=== PATIENT | male | born 1930 | race Two or more races ===

== ENCOUNTER 2018-09-18 05:36 | Inpatient (IN) | payer MEDICARE, OTHER ==
[~2018-09-18] VITALS: Ht 177.8 cm; Wt 75.3 kg
[2018-09-18] VITALS (53 sets, daily range): BP systolic 62–171; BP diastolic 14–102
--- NOTE | 2018-09-18 05:50 | NUR ---
MARLON FROM [facility]. TO ER BED 9. PT AWAKE AND AGITATED. TACHYPNEIC. BROUGHT IN FOR LOW BP - 46 ON SCENE, GIVEN D10 250ML VIA IV. BS RECHECKED WITH RESULT 185. PT NOTED WITH O2 SAT OF [address] ON O2 VIA MASK @ 8LPM SATTING @ 90%. PT ALSO REPORTED AT 90/45. PT NOTED RONCHI UPON ASSESSMENT. PT PLACED ON SOFT WRIST RESTRAINT D/T TRYING TO PULL HIS F/C. MD AT BEDSIDE
--- NOTE | 2018-09-18 05:52 | NUR ---
TECH AT BEDSIDE FOR EKG
[2018-09-18 05:56] LABS: BASOPHILS % (AUTO) 0.3 % (0.0-2.0); EOSINOPHILS % (AUTO) 0.3 % (0.0-6.0); HEMATOCRIT 30 % (39-51); HEMOGLOBIN 9.6 g/dL (13.5-17.5); LYMPHOCYTES # (AUTO) 0.2 /CMM (0.8-4.8); LYMPHOCYTES % (AUTO) 3.8 % (20.0-44.0); MEAN CORPUSCULAR HGB CONC 32 g/dl (31.0-36.0); MEAN CORPUSCULAR VOLUME 94 fL (80-96); MONOCYTES # (AUTO) 0.1 /CMM (0.1-1.30); MONOCYTES % (AUTO) 1.4 % (2.0-12.0); NEUTROPHILS # (AUTO) 5.2 /CMM (1.8-8.9); NEUTROPHILS % (AUTO) 94.2 % (43.0-81.0); PLATELET COUNT (AUTO) 207 /CMM (150-450); RED BLOOD CELL COUNT(AUTO) 3.16 MIL/uL (4.5-6.0); WHITE BLOOD COUNT (AUTO) 5.6 K/uL (4.3-11.0)
[2018-09-18] MEDS ORDERED: IV NS 0.9% 500 ML BAG IV ONE (06:00)
[2018-09-18 06:13] LABS: ALANINE AMINOTRANSFERASE 48 U/L (12-78); ALBUMIN 2.1 g/dL (3.4-5.0); ALKALINE PHOSPHATASE 210 U/L (46-116); ASPARTATE AMINOTRANSFERASE 45 U/L (15-37); BILIRUBIN,DIRECT 0.1 mg/dL (0.0-0.2); BILIRUBIN,TOTAL 0.1 mg/dL (0.2-1.0); CARBON DIOXIDE 23 mmol/L (21-32); CHLORIDE 110 mmol/L (98-107); GLUCOSE 186 mg/dL (74-106); SODIUM SERUM 140 mmol/L (136-145); TOTAL PROTEIN, SERUM 5.8 g/dL (6.4-8.2); UREA NITROGEN, BLOOD 65 mg/dL (7-18)
[2018-09-18 06:19] LABS: POTASSIUM 6.3 mmol/L (3.5-5.1)
[2018-09-18] MEDS ORDERED: CALCIUM CHLORIDE 1,000 MG/10 ML DISP.SYRIN ONE (06:28)
[2018-09-18] MEDS ORDERED: SODIUM BICARBONATE SYR 50 MEQ/50 ML DISP.SYRIN ONE (06:28)
[2018-09-18] MEDS ORDERED: ALBUTEROL FS 2.5 MG/3 ML VIAL.NEB NEB ONE (06:30)
[2018-09-18] MEDS ORDERED: SODIUM BICARBONATE SYR 50 MEQ/50 ML DISP.SYRIN IV ONE (06:30)
[2018-09-18] MEDS ORDERED: CALCIUM CHLORIDE 1,000 MG/10 ML DISP.SYRIN IV ONE (06:30)
--- NOTE | 2018-09-18 06:35 | NUR ---
NO URINE COLLECTED FROM F/C. MADE AWARE. ORDER RECEIVED FOR HYDRATION
[2018-09-18 06:37] LABS: ABG BASE EXCESS -9.9 mmol/L; ABG OXYGEN SATURATION 93.4 % (92.0-98.5); ABG PCO2 39.9 mmHg (35.0-45.0); ABG PH 7.241 (7.350-7.450); ABG PO2 77.6 mmHg (75.0-100.0); AaDO2 306.3 mmHg; MetHb 0.2 % (0.0-1.5); O2Hb 92.3 % (94.0-97.0); SITE, ABG Right Radial; VENT MODE, BG SIMPLE MASK
[2018-09-18] MEDS ORDERED: LEVOFLOXACIN 750 MG /D5W 150ML 150 ML IV ONE (06:45)
--- NOTE | 2018-09-18 06:45 | NUR ---
PT TO CT ON PILAR WITH RN AT BEDSIDE W/ ACLS
[2018-09-18] MEDS ORDERED: ALBUTEROL FS 2.5 MG/3 ML VIAL.NEB ONE (06:55)
[2018-09-18] MEDS ORDERED: LEVOFLOXACIN 750 MG /D5W 150ML PIGGYBACK IV ONE (07:00)
[2018-09-18] MEDS ORDERED: IV NS 0.9% 1,000 ML BAG IV ONE (07:00)
[2018-09-18 07:07] LABS: THYROID STIMULATING HORMONE 4.837 uIU/mL (0.358-3.74)
--- NOTE | 2018-09-18 07:48 | NUR ---
CALLED [facility] ITS ANDONIAN
--- NOTE | 2018-09-18 07:48 | NUR ---
AYO GERMAN (DAUGHTER) [phone]
--- NOTE | 2018-09-18 07:51 | NUR ---
CONTACTED HOUSE SUP FOR ICU BED
--- NOTE | 2018-09-18 08:11 | NUR ---
ICU BED 258. [facility] ON-CALL PAGED.
[2018-09-18 08:45] LABS: APPEARANCE,URINE Slightly Cloudy (CLEAR); BILIRUBIN,URINE Negative (NEGATIVE); BLOOD, URINE Moderate Ery/uL (NEGATIVE); COLOR,URINE Yellow (YELLOW); KETONES,URINE Trace (NEGATIVE); LEUKOCYTE ESTERASE ,URINE Moderate (NEGATIVE); NITRITE, URINE Negative (NEGATIVE); PROTEIN,URINE 100 mg/dl (NEGATIVE); UGLUCOSE Negative (NEGATIVE); UROBILINOGEN,URINE 0.2 EU/dL (0.2)
[2018-09-18 09:00] LABS: BACTERIA,URINE 2+ /HPF (None Seen); SQUAMOUS EPITHELIAL CELL,UR Few /HPF (None Seen)
--- NOTE | 2018-09-18 09:00 | NUR ---
WARP TYING MACHINE TENDER ADMITTING NOTES: Rec'd report from Vito JAMES. Pt for transfer to ICU d/t low HR & AMS. Pt transferred via gurney accompanied by RN & DRILL SERGEANT. Pt is awake & restless. Coarse breath sounds upon auscultation, 94% on NRB 15lpm. SB 39 bpm on telemonitor - E cart placed at bedside. Hypothermic 86.4 - placed warm blanket & inserted rectal probe for temp monitoring. IV line access on R AC G18 SL & L AC G20 SL, flushing well, patent & intact w/ no s/sx of infection/infiltration noted. FC draining to BSB but w/ low yellowish UOP. Wound photos taken & placed in the chart, wound consult ordered for presence of scattered lesion on extremities. Safety precaution kept in place at all times w/ be din lowest & locked pos. Call light placed w/in reach. Will cont to monitor & attend pt needs.
[2018-09-18] MEDS ORDERED: AMLO5TAB4 PO (09:05)
[2018-09-18] MEDS ORDERED: INSU100V30 IJ (09:05)
[2018-09-18] MEDS ORDERED: MEMA10TA PO (09:05)
[2018-09-18] MEDS ORDERED: DOCU-141 PO (09:05)
[2018-09-18] MEDS ORDERED: DONE10TA11 PO (09:05)
[2018-09-18] MEDS ORDERED: CLON0.1T PO (09:05)
[2018-09-18] MEDS ORDERED: CARV6.25 PO (09:05)
[2018-09-18] MEDS ORDERED: PANT40TA2 PO (09:05)
[2018-09-18] MEDS ORDERED: ASPI-605 PO (09:05)
[2018-09-18] MEDS ORDERED: MULT-447 PO (09:05)
[2018-09-18] MEDS ORDERED: AMIO200T4 PO (09:05)
[2018-09-18] MEDS ORDERED: LACT1CAP61 PO (09:05)
[2018-09-18] MEDS ORDERED: ACET-868 PO (09:05)
[2018-09-18] MEDS ORDERED: ASCO500T8 PO (09:05)
[2018-09-18] MEDS ORDERED: QUET25TA PO (09:07)
[2018-09-18] MEDS ORDERED: TRAZ-182 PO (09:07)
[2018-09-18] MEDS ORDERED: SERT50TA PO (09:07)
--- NOTE | 2018-09-18 09:09 | NUR ---
PATIENT TRANSFERRED TO ROOM 258 VIA ACLS PROTOCOL. PATIENT NAD, VSS. ON 15LPM VIA NRB WITH SPO2 OF 96%.
--- NOTE | 2018-09-18 09:30 | NUR ---
Pt restless & agitated, pulling clothes. Dr. Morocho made aware may apply bilateral soft wrist restraints. MD to put admission orders.
--- NOTE | 2018-09-18 09:45 | NUR ---
Called Dr. Morocho re: SBP 70's, HR 39. Per may start NS 100 cc/hr. Addendum: 09/18/18 at 1008 by ROSALES WHITTINGTON RN Addendum: Pt's HR & BP persistently on low side HR 39, BP 80-70's. Spoke w/ Dr. Morocho w/ orders to start Dopamine double concentration & may insert PICC line. MD to consult Dr. Gagnon for cardiology consult.
[2018-09-18] MEDS ORDERED: DOPAMINE 800MG/D5W 250ML RTU PIGGYBACK IV PRN (10:00)
[2018-09-18] MEDS ORDERED: IV NS 0.9% 1,000 ML IV PRN (10:00)
[2018-09-18] MEDS ORDERED: IV NS 0.9% 1,000 ML BAG IV PRN (10:00)
[2018-09-18] MEDS: DOPamine 800 MG in IV D5W 250 ML IV PRN ×2 (10:21→16:11)
[2018-09-18] MEDS ORDERED: ACETAMINOPHEN 325 MG TABLET PO PRN (10:30)
[2018-09-18] MEDS ORDERED: ONDANSETRON HCL/PF 4 MG/2 ML VIAL IVP PRN (10:30)
[2018-09-18] MEDS ORDERED: HYDROCODONE/APAP 5/325MG 1 EACH TABLET PO PRN (10:30)
[2018-09-18] MEDS ORDERED: MAG HYDROX/AL HYDROX/SIMETH 30 ML UDC PO PRN (10:30)
[2018-09-18] MEDS ORDERED: ZOLPIDEM TARTRATE 5 MG TABLET PO PRN (10:30)
[2018-09-18] MEDS ORDERED: MAGNESIUM HYDROXIDE 30 ML UDC PO PRN (10:30)
--- NOTE | 2018-09-18 10:45 | NUR ---
Pt seen & examined by Dr. Calderón. was able to talk to pt's dtr over the phone re: HD catheter placement & initiation of HD tx. Consent signed by as well. Per Dr. Romie GREEN to insert HD cath.
--- NOTE | 2018-09-18 11:15 | NUR ---
Pt seen & examined by Dr. Gagnon, updated about pt status. Addendum: 09/18/18 at 1144 by ROSALES WHITTINGTON RN Per Dr. Gagnon, josué pt c/o ER.
--- NOTE | 2018-09-18 11:20 | NUR ---
Pt desating despite of NRB 100%. Dr. Church made aware w/ orders may place pt on BIPAP. RT made aware.
--- NOTE | 2018-09-18 11:20 | NUR ---
PT. PACED INTO BIPAP DUE TO SPO2 OF 87% ON NON REBREATHER AMD INCREASED WOB. IPAP 15, EPAP 5 FREQ 12, FIO2 100% ORDER. BREATH SOUNDS BILATERAL FINE RALES/ CRACKLES. ANGELI GALLEGO @ BEDSIDE. Addendum: 09/18/18 at 1225 by JIMMIE ROMO RT Amended: Links added.
[2018-09-18] MEDS ORDERED: VANCOMYCIN 1 GM in IV D5W 250ml IV ONE (11:30)
[2018-09-18] MEDS ORDERED: VANCOMYCIN 500 MG in IV D5W 100 ML IV PRN (11:30)
[2018-09-18] MEDS ORDERED: FEE PK DOSING 1 MIN EA MC ONE (11:31)
[2018-09-18] MEDS: NOREPINEPHRINE 16 MG in IV D5W 500 ML IV PRN (11:36)
--- NOTE | 2018-09-18 11:50 | NUR ---
Pt seen & examined by Dr. Ames, updated about pt status.
--- NOTE | 2018-09-18 11:55 | NUR ---
ER Dr came for intubation, however, per Dr. Paul assessment, no indication for intubation at this time. MD was able to talk to Dr. Gagnon over the phone. Dr. Paul ordered for ABG. RT aware.
[2018-09-18] MEDS ORDERED: SODIUM POLYSTYRENE SULF. PWD 15 GM UDC RC ONE (12:00)
[2018-09-18] MEDS: ZOSYN IVPB 2.25 G in IV D5W 50ml IV SCH ×3 (13:07→23:27)
[2018-09-18] MEDS: HYDROCORTISONE SOD SUCCINATE 100 MG/2 ML VIAL IV SCH ×2 (13:08→17:26)
[2018-09-18 13:59] LABS: ABG BASE EXCESS -9.5 mmol/L; ABG OXYGEN SATURATION 96.6 % (92.0-98.5); ABG PCO2 43.9 mmHg (35.0-45.0); ABG PH 7.223 (7.350-7.450); ABG PO2 132.5 mmHg (75.0-100.0); AaDO2 536.6 mmHg; COHb 0.2 % (0.5-1.5); MetHb 0.3 % (0.0-1.5); O2Hb 96.1 % (94.0-97.0); SITE, ABG Right Radial; VENT MODE, BG ST R12 15/5
[2018-09-18] MEDS: BLOOD SUGAR DIAGNOSTIC 1 EACH STRIP IN SCH ×2 (17:33→23:26)
[2018-09-18] MEDS: INSULIN REGULAR, HUMAN 100 UNIT/ML 3 ML VIAL SQ PRN (17:33)
[2018-09-18 17:57] LABS: ABG BASE EXCESS -4.9 mmol/L; ABG OXYGEN SATURATION 97.9 % (92.0-98.5); ABG PCO2 35.8 mmHg (35.0-45.0); ABG PH 7.363 (7.350-7.450); ABG PO2 335.6 mmHg (75.0-100.0); AaDO2 341.6 mmHg; COHb 0.1 % (0.5-1.5); MetHb 0.3 % (0.0-1.5); O2Hb 97.5 % (94.0-97.0); SITE, ABG Right Radial
--- NOTE | 2018-09-18 18:09 | NUR ---
PLACED INTO SIMPLE MASK @ 8 LPM O2 FLOW DUE TO COMBATIVE ON BIPAP. SPO2 100% ON 8 LPM O2 FLOW VIA SIMPLE MASK. BIPAP ON STDBY @ BEDSIDE. RELATIVE OF THE PATIENT AND RN AWARE ON CHANGES. Addendum: 09/18/18 at 1811 by JIMMIE ROMO RT Amended: Links added.
--- NOTE | 2018-09-18 18:52 | NUR ---
CEMENTER MACHINE CLOSING NOTES: Pt on bed, still showing restlessness. Tolerating simple mask at 8lpm, no SOB, sating 98% - s/p HD procedure w/ 2 L output. SR now on telemonitor. IV line access kept patent & intact w/ no s/sx of infection/infiltration noted - REMY PICC line w/ NS x 30cc/hr & Levo x 4 mcg both infusing well. Pt off dopamine drip. FC draining to BSB w/ minimal UOP w/in shift. R femoral HD cath kept patent & intact. Pt off restraints now. Safety precaution kept in place at all times w/ bed in lowest & locked pos. Call light placed w/in reach. Will endorse to PM RN for ERICK.
[2018-09-19] VITALS (56 sets, daily range): BP systolic 76–148; BP diastolic 18–87
[2018-09-19 04:51] LABS: CALCIUM, SERUM 8.5 mg/dL (8.5-10.1); CARBON DIOXIDE 20 mmol/L (21-32); CHLORIDE 107 mmol/L (98-107); GLUCOSE 74 mg/dL (74-106); MAGNESIUM 1.7 mg/dL (1.8-2.4); PHOSPHORUS 7.2 mg/dL (2.5-4.9); SODIUM SERUM 140 mmol/L (136-145); UREA NITROGEN, BLOOD 49 mg/dL (7-18)
[2018-09-19 04:53] LABS: BASOPHILS % (AUTO) 0.1 % (0.0-2.0); HEMATOCRIT 30 % (39-51); HEMOGLOBIN 9.5 g/dL (13.5-17.5); LYMPHOCYTES # (AUTO) 0.3 /CMM (0.8-4.8); LYMPHOCYTES % (AUTO) 1.5 % (20.0-44.0); MEAN CORPUSCULAR HGB CONC 32 g/dl (31.0-36.0); MEAN CORPUSCULAR VOLUME 93 fL (80-96); MONOCYTES # (AUTO) 0.4 /CMM (0.1-1.30); MONOCYTES % (AUTO) 2.1 % (2.0-12.0); NEUTROPHILS # (AUTO) 17.7 /CMM (1.8-8.9); NEUTROPHILS % (AUTO) 96.3 % (43.0-81.0); PLATELET COUNT (AUTO) 217 /CMM (150-450); RED BLOOD CELL COUNT(AUTO) 3.18 MIL/uL (4.5-6.0); WHITE BLOOD COUNT (AUTO) 18.3 K/uL (4.3-11.0)
[2018-09-19 05:03] LABS: POTASSIUM 6.7 mmol/L (3.5-5.1)
[2018-09-19 05:15] LABS: CHOLESTEROL 94 mg/dL (<200); HDL CHOLESTEROL 46 mg/dL (40-60); LDL 36 mg/dL (0-99); TRIGLYCERIDES 67 mg/dL (30-150)
--- NOTE | 2018-09-19 05:21 | NUR ---
Dr Michelle notified of critical potassium, 6.7, new orders, 10 units regular insulin and dextrose 50%, will continue to monitor
[2018-09-19] MEDS ORDERED: INSULIN REGULAR, HUMAN 100 UNIT/ML 3 ML VIAL SQ ONE (05:30)
[2018-09-19] MEDS ORDERED: DEXTROSE 50%-WATER 50 ML DISP.SYRIN IVP ONE (05:30)
[2018-09-19] MEDS: BLOOD SUGAR DIAGNOSTIC 1 EACH STRIP IN SCH ×4 (05:37→23:37)
[2018-09-19] MEDS: ZOSYN IVPB 2.25 G in IV D5W 50ml IV SCH ×4 (05:37→23:37)
[2018-09-19] MEDS: DEXTROSE 50%-WATER 50 ML DISP.SYRIN IV PRN ×2 (06:57→09:01)
[2018-09-19] MEDS ORDERED: DEXTROSE 10% IN WATER 250 ML BAG IV ONE (09:30)
[2018-09-19] MEDS ORDERED: SODIUM POLYSTYRENE SULFONATE 15 G/60 ML BOTTLE RC ONE (10:00)
--- NOTE | 2018-09-19 10:30 | NUR ---
ICU/RN: S/P Kayexelate administration. Dr Calderón and Dr Ames updated on pt status. Repeat K pending. Blood glucose rechecked after initiation of D10 fluids and D50 push; down to 33mg/Dl. New orders to adjust IVF rate noted and carried out.
--- NOTE | 2018-09-19 10:39 | NUR ---
WOUND CARE CONSULT: UNABLE TO DO SKIN ASSESSMENT DUE TO PT EXTREMELY AGITATED AND COMBATIVE. PER NURSING STAFF, PT HAS SKIN TEAR TO RT ARM, PRESENT ON ADMISSION. RECOMMENDATIONS MADE BASED ON NURSING STAFF REPORT. WILL SEE PT PT CONDITION PERMITS. Addendum: 09/19/18 at 1044 by JEFERSON HAYES WNDNU CORRECTION: ABOVE SHOULD READ SKIN TEAR TO LEFT FOREARM.
--- NOTE | 2018-09-19 11:10 | NUR ---
ICU/RN: Pt s/b Dr Church. Informed that ER MD arrived at bedside yesterday and there was no indication for emergent intubation and Dr Gagnon was notified per RN note. Orders for stat abg noted. Pt currently on HD, RN and RT clarified whether MD wishes to proceed with abg, per MD okay to draw.
[2018-09-19 11:20] LABS: ABG BASE EXCESS -4.1 mmol/L; ABG OXYGEN SATURATION 96.9 % (92.0-98.5); ABG PCO2 33.9 mmHg (35.0-45.0); ABG PH 7.394 (7.350-7.450); ABG PO2 137.5 mmHg (75.0-100.0); AaDO2 541.6 mmHg; COHb 0.3 % (0.5-1.5); MetHb 0.3 % (0.0-1.5); O2Hb 96.3 % (94.0-97.0); SITE, ABG Right Radial; VENT MODE, BG BIPAP 15/5 R12 100%
--- NOTE | 2018-09-19 11:55 | NUR ---
RT PATIENT ORALLY INTUBATED BY DR MITCHELL WITH 7.5 ETT 23CM AT THE LIP. POSITIVE CO2 DETECTOR COLOR CHANGE NOTED. BILAT BREATH SOUNDS AND CHEST RISE NOTED. ALL SAFETY MEASURES IN PLACE. Addendum: 09/19/18 at 1216 by KILEY CHAMBERLAIN RT Amended: Links added.
[2018-09-19] MEDS ORDERED: PROPOFOL 10MG/ML 50ML 50 ML IV PRN (12:00)
--- NOTE | 2018-09-19 12:05 | NUR ---
ICU/RNl Pt s/p intubation by Dr Church, ETT 7.5 at 25cm lipline for airway protection. Pending CXR.
[2018-09-19] MEDS ORDERED: DEXTROSE 10% IN WATER 250 ML BAG IV PRN (13:00)
[2018-09-19] MEDS: IV 10% DEXTROSE 1,000 ML IV SCH (13:19)
--- NOTE | 2018-09-19 13:30 | NUR ---
BISQUE KILN DRAWER NOTES PT REPORT GIVEN BY JACOB OREILLY .PT IS INTUBATED ET WITH 7.5/25CM,HAS OROGASTRIC TUBE,TOLERATING WELL.WITH MECHANICAL VENTILATOR AC 12,TV [id number] AND PEEP-5.ON TELE HR IS SR.NO SOB AND ACUTE DISTRESS NOTED.MITTEN AND SOFT WRIST RESTRAINTS B/L PRESENT,SKIN IS NOTED WITH SKIN TEAR AND WOUND ON BACK.PT IS CLEAN,DRY AND INTACT.PICC LINE IS ON RIGHT UA WITH IV D10 @75CC/HR,IV PROPOFOL @30MCG/KG/MT AND IV NOREPINEPHRINE @2MCG/MT IS RUNNING AND IV LINE IS ON RIGHT AC G18,SL.BP IS MAINTAINING NOW.PT IS SEDATED NOW.IV SITE IS CLEAN,DRY AND INTACT.NO INFILTRATION NOTED.FC IS IN PLACE WITH CLEAR YELLOW URINE.BED IS IN LOW POSITION AND LOCKED.CALL LIGHT IS WITHIN REACH.WILL CONTINUE TO MONITOR THE PT CLOSELY.
[2018-09-19] MEDS: PROPOFOL 100 ML IV PRN ×3 (14:18→23:49)
[2018-09-19] MEDS ORDERED: ROCURONIUM BROMIDE 50 MG/5 ML IV ONE (14:45)
[2018-09-19] MEDS ORDERED: VECURONIUM 10 MG VIAL IV ONE (14:45)
[2018-09-19] MEDS ORDERED: ETOMIDATE 2 MG/ML VIAL IV ONE (14:45)
[2018-09-19] MEDS: INSULIN REGULAR, HUMAN 100 UNIT/ML 3 ML VIAL SQ PRN ×2 (17:27→23:45)
--- NOTE | 2018-09-19 18:46 | NUR ---
E COMMERCE ARCHITECT CLOSING NOTES PT IS LYING ON BED WITH INTUBATED ET WITH 7.5/25CM,HAS OROGASTRIC TUBE,TOLERATING WELL.WITH MECHANICAL VENTILATOR AC 18,TV 500 FIO2-40 AND PEEP-5.ON TELE HR IS 100 WITH SR.NO SOB AND ACUTE DISTRESS NOTED.MITTEN AND SOFT WRIST RESTRAINTS B/L PRESENT,SKIN IS NOTED WITH SKIN TEAR AND WOUND ON BACK.PT IS CLEAN,DRY AND INTACT.PICC LINE IS ON RIGHT UA WITH IV D10 @30CC/HR,IV PROPOFOL @30MCG/KG/MT AND IV NOREPINEPHRINE @2MCG/MT IS RUNNING AND IV LINE IS ON RIGHT AC G18,SL.BP IS MAINTAINING NOW.PT IS SEDATED NOW.IV SITE IS CLEAN,DRY AND INTACT.NO INFILTRATION NOTED.FC IS IN PLACE WITH CLEAR YELLOW URINE.BED IS IN LOW POSITION AND LOCKED.CALL LIGHT IS WITHIN REACH.ALL DUE MEDS ARE GIVEN.WILL ENDORSE TO NEUROLOGY PHYSICIAN ASSISTANT RN FOR ERICK.
--- NOTE | 2018-09-19 19:17 | NUR ---
TOW TRUCK OPERATOR NOTE PATIENT IS RESTING WITH ET 7.5/25CM, WITH ORALGASTRIC TUBE, NO S/SX OF CARDIAC OR RESPIRATORY DISTRESS, SR ON MONITOR, REMY PICC LINE, RAC #20G IV BOTH PATENT FLUSHING WELL, RUNNING PROPOFOL AT 30 MCG/KG/M, D10W AT 30CC/HR, NOREPINEPHRINE AT 2MCG/MT, F/C DRAIING TO GRAVITY YELLOW URINE, SKIN KEPT CLEAN AND DRY, SHIKHA SOFT WRIST RESTRAINTS AND MITTENS ON, NO S/SX OF SKIN BREAKDOWN, NO REDNESS, SAFETY MAINTAINED AT ALL TIMES, BED IN LOW LOCKED POSITION, WILL CONTINUE TO MONITOR FOR ANY CHANGES.
--- NOTE | 2018-09-19 20:08 | NUR ---
RECEIVED PT INTUBATED, 7.5 ETT SECURED AT 24CM AT THE LIP VIA ANCHOR FAST. NO DISTRESS NOTED. TOLERATING VENT SETTINGS. SX'D FOR SML AMT OF THICK VILLA SECRETIONS. ETT CUFF SIGN WIRER. AMBU BAG AT BEDSIDE. VENT PLUGGED INTO RED OUTLET. VENT ALARMS SET. WILL CONTINUE TO MONITOR. Addendum: 09/19/18 at 2011 by KIRTI FITZPATRICK RT Amended: Links added.
[2018-09-20] VITALS (89 sets, daily range): BP systolic 66–136; BP diastolic 24–88
[2018-09-20 04:54] LABS: BASOPHILS % (AUTO) 0.1 % (0.0-2.0); EOSINOPHILS % (AUTO) 0.5 % (0.0-6.0); HEMATOCRIT 26 % (39-51); HEMOGLOBIN 8.7 g/dL (13.5-17.5); LYMPHOCYTES # (AUTO) 0.4 /CMM (0.8-4.8); LYMPHOCYTES % (AUTO) 3.3 % (20.0-44.0); MEAN CORPUSCULAR HGB CONC 34 g/dl (31.0-36.0); MEAN CORPUSCULAR VOLUME 92 fL (80-96); MONOCYTES # (AUTO) 0.2 /CMM (0.1-1.30); MONOCYTES % (AUTO) 1.7 % (2.0-12.0); NEUTROPHILS % (AUTO) 94.4 % (43.0-81.0); PLATELET COUNT (AUTO) 139 /CMM (150-450); RED BLOOD CELL COUNT(AUTO) 2.83 MIL/uL (4.5-6.0); WHITE BLOOD COUNT (AUTO) 12.7 K/uL (4.3-11.0)
[2018-09-20 05:10] LABS: ALANINE AMINOTRANSFERASE 41 U/L (12-78); ALBUMIN 1.7 g/dL (3.4-5.0); ALKALINE PHOSPHATASE 143 U/L (46-116); ASPARTATE AMINOTRANSFERASE 38 U/L (15-37); BILIRUBIN,TOTAL 0.6 mg/dL (0.2-1.0); CALCIUM, SERUM 7.9 mg/dL (8.5-10.1); CARBON DIOXIDE 27 mmol/L (21-32); CHLORIDE 108 mmol/L (98-107); CREATININE 2.4 mg/dL (0.6-1.3); GLUCOSE 148 mg/dL (74-106); MAGNESIUM 1.8 mg/dL (1.8-2.4); PHOSPHORUS 4.5 mg/dL (2.5-4.9); SODIUM SERUM 142 mmol/L (136-145); TOTAL PROTEIN, SERUM 5.2 g/dL (6.4-8.2); UREA NITROGEN, BLOOD 37 mg/dL (7-18)
[2018-09-20] MEDS: BLOOD SUGAR DIAGNOSTIC 1 EACH STRIP IN SCH ×3 (05:29→17:20)
[2018-09-20] MEDS: PROPOFOL 100 ML IV PRN ×4 (05:30→23:00)
[2018-09-20] MEDS: ZOSYN IVPB 2.25 G in IV D5W 50ml IV SCH ×3 (05:30→17:20)
--- NOTE | 2018-09-20 07:00 | NUR ---
RN NOTE RECEIVED PT ON BED, INTUBATED , SEDATED, ON PROPOFOL AT 30MCG/KG/MIN , ET 7.5/25CM, WITH ORAL GASTRIC TUBE, ON TELE SB , HR IN 50'S , R UA PICC LINE, RAC #20G IV BOTH PATENT FLUSHING WELL, SITES CLEAN, DRY AND INTACT, D10W AT 30CC/HR, LEVO AT .5 MG/ MIN , ORTIZ DRAINING TO GRAVITY YELLOW URINE, SHIKHA SOFT WRIST RESTRAINTS AND MITTENS ON FOR PT SAFETY. SAFETY MAINTAINED AT ALL TIMES,SR UP x3, BED LOCKED AND IN LOWEST POSITION, CONTINUE TO MONITOR .
[2018-09-20] MEDS: NOREPINEPHRINE 16 MG in IV D5W 500 ML IV PRN (08:05)
--- NOTE | 2018-09-20 12:00 | NUR ---
RN NOTES T =94 ,SUSANA MOORE APPLIED , CONTINUE TO MONITOR.
[2018-09-20] MEDS: ALBUMIN 25% 25 GM in PREMIX 1 EA IV SCH ×2 (12:20→18:01)
[2018-09-20] MEDS: IV 10% DEXTROSE 1,000 ML IV SCH (12:20)
[2018-09-20] MEDS: QUETIAPINE FUMARATE 25 MG TABLET PO SCH ×2 (13:00→16:39)
[2018-09-20] MEDS: NEPRO 1,000 ML BOTTLE GT PRN (14:10)
[2018-09-20] MEDS: MEMANTINE HCL 5 MG TABLET PO SCH (16:38)
[2018-09-20] MEDS: LACTOBACILLUS RHAMNOSUS GG 1 EACH CAP.SPRINK PO SCH (16:38)
[2018-09-20 16:48] LABS: ABG BASE EXCESS 0.2 mmol/L; ABG OXYGEN SATURATION 96.8 % (92.0-98.5); ABG PCO2 41.4 mmHg (35.0-45.0); ABG PH 7.399 (7.350-7.450); ABG PO2 142.6 mmHg (75.0-100.0); COHb 0.7 % (0.5-1.5); MetHb 0.3 % (0.0-1.5); O2Hb 95.8 % (94.0-97.0); PEEP,BG 5 cm H2O; SITE, ABG Left Brachial; VT, ABG 500 mL
[2018-09-20 16:57] LABS: CREATININE, URINE 16.6 MG/DL (30.0-125.0)
--- NOTE | 2018-09-20 17:56 | NUR ---
RT END OF THE SHIFT REPORT, PT 88 Y OLD MALE REMAIN ORALLY INTUBATED ETT #7.5 @ 23 CM LIP LINE WITH NOTED SETTINGS, ALARMS ARE SET AND FUNCTIONAL, B/S BILATERALLY FINE, EQUAL CHEST RISE NOTED. MINIMAL SECRETIONS, HME CHANGED, BOMB SQUAD COMMANDER DONE, NO CHANGES T/O DAY, AMBU BAG REMAIN AT THE BEDSIDE. PT. REMAIN STABLE AND FAMILY MEMBERS AT TH BEDSIDE. WILL CONTINUE TO MONITOR. Addendum: 09/20/18 at 1757 by SHORTY THOMPSON RT Amended: Links added.
--- NOTE | 2018-09-20 18:35 | NUR ---
RN NOTES PT REMAINS INTUBATED, ON PROPOFOL AND LEVO GTT, TF AT 3O CC /HR AT THIS TIME , T=93.7 , PT ON SUSANA OSCAR, NO SIGNIFICANT CHANGES NOTED ON THIS SHIFT , WILL ENDORSE TO CLOTH FINISHING RANGE OPERATOR CHIEF NURSE FOR CONTINUITY OF CARE
[2018-09-21] VITALS (87 sets, daily range): BP systolic 77–162; BP diastolic 28–87
[2018-09-21] MEDS: BLOOD SUGAR DIAGNOSTIC 1 EACH STRIP IN SCH ×5 (00:33→23:32)
[2018-09-21] MEDS: ZOSYN IVPB 2.25 G in IV D5W 50ml IV SCH ×5 (00:33→23:32)
[2018-09-21] MEDS: ALBUMIN 25% 25 GM in PREMIX 1 EA IV SCH ×2 (03:19→15:35)
[2018-09-21 04:50] LABS: BASOPHILS % (AUTO) 0.2 % (0.0-2.0); EOSINOPHILS % (AUTO) 1.5 % (0.0-6.0); HEMATOCRIT 24 % (39-51); HEMOGLOBIN 8.1 g/dL (13.5-17.5); LYMPHOCYTES # (AUTO) 0.2 /CMM (0.8-4.8); LYMPHOCYTES % (AUTO) 2.2 % (20.0-44.0); MEAN CORPUSCULAR HGB CONC 34 g/dl (31.0-36.0); MEAN CORPUSCULAR VOLUME 92 fL (80-96); MONOCYTES # (AUTO) 0.2 /CMM (0.1-1.30); MONOCYTES % (AUTO) 1.7 % (2.0-12.0); NEUTROPHILS # (AUTO) 9.9 /CMM (1.8-8.9); NEUTROPHILS % (AUTO) 94.4 % (43.0-81.0); PLATELET COUNT (AUTO) 105 /CMM (150-450); RED BLOOD CELL COUNT(AUTO) 2.57 MIL/uL (4.5-6.0); WHITE BLOOD COUNT (AUTO) 10.5 K/uL (4.3-11.0)
[2018-09-21] MEDS: PROPOFOL 100 ML IV PRN ×5 (05:12→23:33)
[2018-09-21 05:19] LABS: ALANINE AMINOTRANSFERASE 35 U/L (12-78); ALBUMIN 2.2 g/dL (3.4-5.0); ALKALINE PHOSPHATASE 170 U/L (46-116); ASPARTATE AMINOTRANSFERASE 30 U/L (15-37); BILIRUBIN,TOTAL 0.6 mg/dL (0.2-1.0); CALCIUM, SERUM 7.8 mg/dL (8.5-10.1); CARBON DIOXIDE 24 mmol/L (21-32); CHLORIDE 109 mmol/L (98-107); CREATININE 2.7 mg/dL (0.6-1.3); GLUCOSE 90 mg/dL (74-106); MAGNESIUM 1.7 mg/dL (1.8-2.4); PHOSPHORUS 4.4 mg/dL (2.5-4.9); SODIUM SERUM 144 mmol/L (136-145); TOTAL PROTEIN, SERUM 5.4 g/dL (6.4-8.2); UREA NITROGEN, BLOOD 40 mg/dL (7-18)
[2018-09-21 09:08] LABS: ABG BASE EXCESS -1.5 mmol/L; ABG OXYGEN SATURATION 95.6 % (92.0-98.5); ABG PH 7.401 (7.350-7.450); ABG PO2 97.2 mmHg (75.0-100.0); AaDO2 144.3 mmHg; COHb 1.3 % (0.5-1.5); MetHb 0.3 % (0.0-1.5); O2Hb 94.1 % (94.0-97.0); SITE, ABG Right Radial
[2018-09-21] MEDS: SERTRALINE HCL 50 MG TABLET PO SCH (10:14)
[2018-09-21] MEDS: MULTIVIT W/MINERALS 1 TAB TABLET PO SCH (10:14)
[2018-09-21] MEDS: AMIODARONE HCL 200 MG TABLET PO SCH (10:15)
[2018-09-21] MEDS: MEMANTINE HCL 5 MG TABLET PO SCH ×2 (10:15→17:40)
[2018-09-21] MEDS: QUETIAPINE FUMARATE 25 MG TABLET PO SCH ×3 (10:15→17:40)
[2018-09-21] MEDS: LACTOBACILLUS RHAMNOSUS GG 1 EACH CAP.SPRINK PO SCH ×2 (10:15→17:40)
[2018-09-21] MEDS: Magnesium 1GM/D5W 100ML PREMIX 100 ML IV SCH ×2 (13:10→14:02)
[2018-09-21] MEDS: IV 10% DEXTROSE 1,000 ML IV SCH (13:11)
[2018-09-21] MEDS: NOREPINEPHRINE 16 MG in IV D5W 500 ML IV PRN (13:34)
[2018-09-21] MEDS: BUMETANIDE INJ 1 MG in IV NS 0.9% 40 ML IV SCH (16:07)
--- NOTE | 2018-09-21 20:34 | NUR ---
PATIENT RECEIVED ORALLY INTUBATED WITH 7.5 ET TUBE SECURED @ 24 CM LIP LINE. VENT SETTINGS: AC 18, 500, 40%, PT IS SEDATED , ET TUBE SECURED AND PATENT. VENT PLUGGED TO RED OUTLET. ALARMS ON AND AUDIBLE. SUCTIONED SMALL AMOUNT OF VILLA THICK SECRETIONS. WILL CONTINUE TO MONITOR CLOSELY.
[2018-09-22] VITALS (93 sets, daily range): BP systolic 81–126; BP diastolic 31–65
[2018-09-22] MEDS: BUMETANIDE INJ 1 MG in IV NS 0.9% 40 ML IV SCH (02:57)
[2018-09-22] MEDS: ALBUMIN 25% 25 GM in PREMIX 1 EA IV SCH (02:57)
[2018-09-22] MEDS: NEPRO 1,000 ML BOTTLE GT PRN (02:57)
[2018-09-22 04:28] LABS: BASOPHILS % (AUTO) 0.1 % (0.0-2.0); EOSINOPHILS % (AUTO) 4.2 % (0.0-6.0); HEMATOCRIT 26 % (39-51); HEMOGLOBIN 8.5 g/dL (13.5-17.5); LYMPHOCYTES # (AUTO) 0.4 /CMM (0.8-4.8); LYMPHOCYTES % (AUTO) 3.1 % (20.0-44.0); MEAN CORPUSCULAR HGB CONC 33 g/dl (31.0-36.0); MEAN CORPUSCULAR VOLUME 93 fL (80-96); MONOCYTES # (AUTO) 0.3 /CMM (0.1-1.30); MONOCYTES % (AUTO) 2.3 % (2.0-12.0); NEUTROPHILS # (AUTO) 10.3 /CMM (1.8-8.9); NEUTROPHILS % (AUTO) 90.3 % (43.0-81.0); PLATELET COUNT (AUTO) 98 /CMM (150-450); RED BLOOD CELL COUNT(AUTO) 2.76 MIL/uL (4.5-6.0); WHITE BLOOD COUNT (AUTO) 11.5 K/uL (4.3-11.0)
[2018-09-22 04:42] LABS: ALBUMIN 2.1 g/dL (3.4-5.0); CARBON DIOXIDE 26 mmol/L (21-32); CHLORIDE 109 mmol/L (98-107); GLUCOSE 157 mg/dL (74-106); MAGNESIUM 2.2 mg/dL (1.8-2.4); PHOSPHORUS 4.1 mg/dL (2.5-4.9); POTASSIUM 3.5 mmol/L (3.5-5.1); SODIUM SERUM 145 mmol/L (136-145); UREA NITROGEN, BLOOD 45 mg/dL (7-18)
[2018-09-22] MEDS: ZOSYN IVPB 2.25 G in IV D5W 50ml IV SCH ×4 (05:09→23:51)
[2018-09-22 05:14] LABS: EOSINOPHILS % (MANUAL) 4 % (0-4); LYMPHOCYTES % (MANUAL) 1 % (16-48); MONOCYTES % (MANUAL) 2 % (0-11.0); NEUTROPHILS % (MANUAL) 93 (42-76)
[2018-09-22] MEDS: BLOOD SUGAR DIAGNOSTIC 1 EACH STRIP IN SCH ×4 (06:17→23:50)
[2018-09-22] MEDS: PROPOFOL 100 ML IV PRN ×3 (06:18→18:41)
--- NOTE | 2018-09-22 07:16 | NUR ---
WATER AND SEWER SYSTEMS SUPERINTENDENT NOTE PT REMAINED STABLE DURING SHIFT. NO ACUTE DISTRESS NOTED. MECH VENT SETTINGS WELL TOLERATED AND SATURATING WELL. SUCTIONED NEEDED. REPOSITIONED Q2H. ON ASPIRATION PRECAUTIONS. WILL ENDORSE TO NEXT SHIFT FOR CONTINUITY OF CARE.
[2018-09-22 08:21] LABS: ABG BASE EXCESS -2.6 mmol/L; ABG OXYGEN SATURATION 89.6 % (92.0-98.5); ABG PCO2 36.2 mmHg (35.0-45.0); ABG PH 7.398 (7.350-7.450); AaDO2 183.6 mmHg; MetHb 0.3 % (0.0-1.5); O2Hb 87.5 % (94.0-97.0); SITE, ABG Right Radial; VENT MODE, BG AC 18 500 40% +5
[2018-09-22] MEDS: MEMANTINE HCL 5 MG TABLET PO SCH ×2 (08:38→17:04)
[2018-09-22] MEDS: LACTOBACILLUS RHAMNOSUS GG 1 EACH CAP.SPRINK PO SCH ×2 (08:38→17:03)
[2018-09-22] MEDS: MULTIVIT W/MINERALS 1 TAB TABLET PO SCH (08:39)
[2018-09-22] MEDS: SERTRALINE HCL 50 MG TABLET PO SCH (08:39)
[2018-09-22] MEDS: AMIODARONE HCL 200 MG TABLET PO SCH (08:39)
[2018-09-22] MEDS: QUETIAPINE FUMARATE 25 MG TABLET PO SCH ×3 (08:39→17:04)
--- NOTE | 2018-09-22 09:55 | NUR ---
RN NOTE 0715: Received patient sedated. With ETT to vent, tolerated settings at this time. OGT intact, feeding tolerated. Kept HOB elevated. Barth cath intact, noted with clear pale yellow urine drained to BSD. On yue hugger, with temp of 98.9, turned yue hugger off for now. 0830: S/E by Kalpesh GARRETT, no new orders at this time. 0900: Rendered sedation vacation. Noted patient with agitation omn 10mcg Diprivan, does not follow commands, moves hands and coughs more often, noted with minimal to moderate amount secretions when suctioned Placed back on Diprivan @ 30mcg. 0930: S/E by Dr. Burger, will continue to monitor and will try patient to wake up around 1400. aware for the ABG result, titrated FIO2 to 50%. 0955: No any significant changes noted at this time. Will continue to monitor.
[2018-09-22] MEDS ORDERED: IV D5/0.45 NACL 1,000 ML IV ONE (11:00)
--- NOTE | 2018-09-22 15:53 | NUR ---
RN NOTE S/E by Dr. Burger again, reviewed chart. Patient is off sedation at this time but still not cooperative. Per MD, no weaning at this time. Placed back on sedation. Cleaned patient, noted with large amount of loose stool, will continue to monitor. Still on Levo @ 2mcg.
[2018-09-22] MEDS: IV D5/0.45 NACL 1,000 ML IV PRN (17:20)
[2018-09-22] MEDS: NOREPINEPHRINE 16 MG in IV D5W 500 ML IV PRN (17:36)
--- NOTE | 2018-09-22 20:00 | NUR ---
RN INITIAL NOTE RECEIVED PT ON BED, INTUBATED , SEDATED, ON PROPOFOL AT 30MCG/KG/MIN , ET 7.5/25CM, WITH ORAL GASTRIC TUBE WITH TF INFUSING ORDERED, ON TELE SR , HR IN 70 WITH INVERTED T , R UA PICC LINE, RAC #20G IV BOTH PATENT FLUSHING WELL, SITES CLEAN, DRY AND INTACT, D5 WITH 1/2 NS AT 50CC/HR, LEVO AT 4 AND PROPOFOL @30 , ORTIZ DRAINING TO GRAVITY YELLOW URINE, SHIKHA SOFT WRIST RESTRAINTS AND FOR PT SAFETY. SAFETY MAINTAINED AT ALL TIMES,SR UP x3, BED LOCKED AND IN LOWEST POSITION,WILL CONTINUE TO MONITOR .
[2018-09-22] MEDS: INSULIN REGULAR, HUMAN 100 UNIT/ML 3 ML VIAL SQ PRN (23:51)
[2018-09-23] VITALS (76 sets, daily range): BP systolic 80–127; BP diastolic 41–66
[2018-09-23] MEDS: PROPOFOL 100 ML IV PRN ×4 (01:39→18:06)
[2018-09-23 04:31] LABS: BASOPHILS % (AUTO) 0.3 % (0.0-2.0); EOSINOPHILS % (AUTO) 4.7 % (0.0-6.0); HEMATOCRIT 25 % (39-51); HEMOGLOBIN 8.2 g/dL (13.5-17.5); LYMPHOCYTES # (AUTO) 0.5 /CMM (0.8-4.8); LYMPHOCYTES % (AUTO) 4.7 % (20.0-44.0); MEAN CORPUSCULAR HGB CONC 33 g/dl (31.0-36.0); MEAN CORPUSCULAR VOLUME 91 fL (80-96); MONOCYTES # (AUTO) 0.3 /CMM (0.1-1.30); MONOCYTES % (AUTO) 2.7 % (2.0-12.0); NEUTROPHILS # (AUTO) 9.9 /CMM (1.8-8.9); NEUTROPHILS % (AUTO) 87.6 % (43.0-81.0); PLATELET COUNT (AUTO) 79 /CMM (150-450); RED BLOOD CELL COUNT(AUTO) 2.71 MIL/uL (4.5-6.0); WHITE BLOOD COUNT (AUTO) 11.3 K/uL (4.3-11.0)
[2018-09-23 04:43] LABS: CALCIUM, SERUM 8.2 mg/dL (8.5-10.1); CARBON DIOXIDE 23 mmol/L (21-32); CHLORIDE 109 mmol/L (98-107); CREATININE 3.3 mg/dL (0.6-1.3); GLUCOSE 123 mg/dL (74-106); MAGNESIUM 2.1 mg/dL (1.8-2.4); PHOSPHORUS 4.4 mg/dL (2.5-4.9); POTASSIUM 3.5 mmol/L (3.5-5.1); SODIUM SERUM 145 mmol/L (136-145); UREA NITROGEN, BLOOD 52 mg/dL (7-18)
[2018-09-23 04:57] LABS: EOSINOPHILS % (MANUAL) 4 % (0-4); LYMPHOCYTES % (MANUAL) 4 % (16-48); MONOCYTES % (MANUAL) 2 % (0-11.0); NEUTROPHILS % (MANUAL) 90 (42-76)
[2018-09-23] MEDS ORDERED: IV NS 0.9% 500 ML IV ONE (05:00)
[2018-09-23] MEDS: BLOOD SUGAR DIAGNOSTIC 1 EACH STRIP IN SCH ×3 (05:59→17:01)
[2018-09-23] MEDS: ZOSYN IVPB 2.25 G in IV D5W 50ml IV SCH ×2 (06:02→11:51)
[2018-09-23] MEDS: INSULIN REGULAR, HUMAN 100 UNIT/ML 3 ML VIAL SQ PRN (06:02)
--- NOTE | 2018-09-23 06:36 | NUR ---
RN CLOSING NOTE PT REMAINED STABLE DURING SHIFT. NO ACUTE DISTRESS NOTED. ETT SETTINGS WELL TOLERATED AND SATURATING WELL. SUCTIONED NEEDED. REPOSITIONED Q2H. ON ASPIRATION PRECAUTIONS.ALL SAFETY PRECAUTIONS TAKEN. WILL ENDORSE TO NEXT SHIFT FOR CONTINUITY OF CARE.
[2018-09-23] MEDS: NEPRO 1,000 ML BOTTLE GT PRN (07:02)
[2018-09-23] MEDS: IV D5/0.45 NACL 1,000 ML IV PRN (07:04)
--- NOTE | 2018-09-23 08:00 | NUR ---
ICU/RN: Attempted to titrate sedation off, pt noted to be restless and agitated, unable to follow commands. Resumed Diprivan for comfort and safety.
[2018-09-23] MEDS: MULTIVIT W/MINERALS 1 TAB TABLET PO SCH (08:23)
[2018-09-23] MEDS: MEMANTINE HCL 5 MG TABLET PO SCH ×2 (08:23→17:01)
[2018-09-23] MEDS: SERTRALINE HCL 50 MG TABLET PO SCH (08:24)
[2018-09-23] MEDS: AMIODARONE HCL 200 MG TABLET PO SCH (08:24)
[2018-09-23] MEDS: QUETIAPINE FUMARATE 25 MG TABLET PO SCH ×3 (08:24→17:01)
[2018-09-23] MEDS: LACTOBACILLUS RHAMNOSUS GG 1 EACH CAP.SPRINK PO SCH ×2 (08:24→17:01)
[2018-09-23 09:01] LABS: ABG OXYGEN SATURATION 96.1 % (92.0-98.5); ABG PCO2 38.5 mmHg (35.0-45.0); ABG PH 7.373 (7.350-7.450); ABG PO2 105.1 mmHg (75.0-100.0); AaDO2 208.1 mmHg; MetHb 0.1 % (0.0-1.5); PEEP,BG 8 cm H2O; SITE, ABG Right Radial
--- NOTE | 2018-09-23 09:15 | NUR ---
ICU/RN: Dr Burger rounds; updated on pt status. Abn labs reviewed.
--- NOTE | 2018-09-23 13:00 | NUR ---
ICU/RN: Hygienic care rendered; noted with loose soft yellow stool. Mepilex applied to L heel. Offloaded. Turned and repositioned.
[2018-09-23] MEDS ORDERED: VANCOMYCIN 1 GM in IV D5W 250 ML IV ONE (16:00)
--- NOTE | 2018-09-23 17:15 | NUR ---
ICU/RN: Pt off HD; no output. Dr Calderón informed prior to HD that CVP reading is 4-6, pt with good urine output.
--- NOTE | 2018-09-23 17:39 | NUR ---
RT NOTE PT REMAINS MECHANICALLY VENTILATED VIA 7.5 ETT 24 CM AT LIP. CUFF INFLATED VIA PRESSURISED CONTAINER FILLER. ETT SECURE. VENTILATOR SETTINGS PRESCRIBED. ALARMS SET PER PROTOCOL AND AUDIBLE. VENT PLUGGED IN TO RED OUTLET. AMBU BAG AT BED SIDE. NO DISTRESS NOTED. Addendum: 09/23/18 at 1741 by NEGAR BOTELLO RT Amended: Links added.
[2018-09-23] MEDS: NOREPINEPHRINE 16 MG in IV D5W 500 ML IV PRN (19:05)
[2018-09-23] MEDS ORDERED: PIPERACILLIN /TAZOBACTAM 2.25 G in IV D5W 50 ML IV SCH (20:00)
--- NOTE | 2018-09-23 20:00 | NUR ---
RN INITIAL NOTE RECEIVED PT ON BED, INTUBATED , SEDATED, ON PROPOFOL AT 30MCG/KG/MIN , ET 7.5/25CM, WITH ORAL GASTRIC TUBE WITH TF INFUSING ORDERED, ON TELE SR , HR IN 70S WITH , R UA PICC LINE, RAC #20G IV BOTH PATENT FLUSHING WELL, SITES CLEAN, DRY AND INTACT, LEVO AT 4 AND PROPOFOL @30 , ORTIZ DRAINING TO GRAVITY YELLOW URINE, SHIKHA SOFT WRIST RESTRAINTS AND FOR PT SAFETY. SAFETY MAINTAINED AT ALL TIMES,SR UP x3, BED LOCKED AND IN LOWEST POSITION,WILL CONTINUE TO MONITOR .
[2018-09-23] MEDS: Z GUARD REMEDY 2 OZ OINT TP PRN (20:38)
[2018-09-23] MEDS: MEROPENEM 500 MG in IV NS 0.9% 50 ML IV SCH (20:38)
[2018-09-24] VITALS (98 sets, daily range): BP systolic 77–134; BP diastolic 37–70
[2018-09-24] MEDS: PROPOFOL 100 ML IV PRN ×5 (01:01→23:25)
[2018-09-24] MEDS: BLOOD SUGAR DIAGNOSTIC 1 EACH STRIP IN SCH ×5 (01:02→23:53)
[2018-09-24] MEDS: INSULIN REGULAR, HUMAN 100 UNIT/ML 3 ML VIAL SQ PRN ×3 (02:35→23:55)
[2018-09-24 05:25] LABS: BASOPHILS % (AUTO) 0.4 % (0.0-2.0); HEMATOCRIT 24 % (39-51); HEMOGLOBIN 8.1 g/dL (13.5-17.5); LYMPHOCYTES # (AUTO) 0.7 /CMM (0.8-4.8); LYMPHOCYTES % (AUTO) 7.6 % (20.0-44.0); MEAN CORPUSCULAR HGB CONC 34 g/dl (31.0-36.0); MEAN CORPUSCULAR VOLUME 92 fL (80-96); MONOCYTES # (AUTO) 0.4 /CMM (0.1-1.30); MONOCYTES % (AUTO) 4.9 % (2.0-12.0); NEUTROPHILS # (AUTO) 7.1 /CMM (1.8-8.9); NEUTROPHILS % (AUTO) 81.1 % (43.0-81.0); PLATELET COUNT (AUTO) 61 /CMM (150-450); RED BLOOD CELL COUNT(AUTO) 2.57 MIL/uL (4.5-6.0); WHITE BLOOD COUNT (AUTO) 8.7 K/uL (4.3-11.0)
[2018-09-24 05:42] LABS: ALANINE AMINOTRANSFERASE 24 U/L (12-78); ALBUMIN 1.8 g/dL (3.4-5.0); ALKALINE PHOSPHATASE 287 U/L (46-116); ASPARTATE AMINOTRANSFERASE 30 U/L (15-37); BILIRUBIN,TOTAL 0.7 mg/dL (0.2-1.0); CALCIUM, SERUM 8.6 mg/dL (8.5-10.1); CARBON DIOXIDE 30 mmol/L (21-32); CHLORIDE 108 mmol/L (98-107); CREATININE 2.8 mg/dL (0.6-1.3); GLUCOSE 101 mg/dL (74-106); MAGNESIUM 2.2 mg/dL (1.8-2.4); PHOSPHORUS 3.9 mg/dL (2.5-4.9); POTASSIUM 3.7 mmol/L (3.5-5.1); SODIUM SERUM 145 mmol/L (136-145); TOTAL PROTEIN, SERUM 5.3 g/dL (6.4-8.2); UREA NITROGEN, BLOOD 45 mg/dL (7-18)
[2018-09-24] MEDS: NEPRO 1,000 ML BOTTLE GT PRN (06:07)
[2018-09-24 06:16] LABS: EOSINOPHILS % (MANUAL) 6 % (0-4); LYMPHOCYTES % (MANUAL) 5 % (16-48); MONOCYTES % (MANUAL) 3 % (0-11.0); NEUTROPHILS % (MANUAL) 86 (42-76)
[2018-09-24] MEDS: SERTRALINE HCL 50 MG TABLET PO SCH (08:20)
[2018-09-24] MEDS: MEMANTINE HCL 5 MG TABLET PO SCH ×2 (08:20→16:20)
[2018-09-24] MEDS: MULTIVIT W/MINERALS 1 TAB TABLET PO SCH (08:20)
[2018-09-24] MEDS: LACTOBACILLUS RHAMNOSUS GG 1 EACH CAP.SPRINK PO SCH ×2 (08:20→16:20)
[2018-09-24] MEDS: MEROPENEM 500 MG in IV NS 0.9% 50 ML IV SCH ×2 (08:20→21:31)
[2018-09-24] MEDS: QUETIAPINE FUMARATE 25 MG TABLET PO SCH ×3 (08:20→16:20)
[2018-09-24] MEDS: AMIODARONE HCL 200 MG TABLET PO SCH (08:21)
--- NOTE | 2018-09-24 09:06 | NUR ---
received pt from operations supervisor 2nd shift, sedated on Diprivan at 30mcg, SR, on the vent, lungs partially congested, some edema, OG to feeding tolerates well, f/c low output HD pt, on levo at 4mcg, restraints on, v/s stable, no pain, pt turned and repositioned, at the bedside.
[2018-09-24] MEDS: ALBUMIN 25% 25 GM in PREMIX 1 EA IV SCH ×2 (13:13→17:40)
--- NOTE | 2018-09-24 16:16 | NUR ---
pt is sedated in Diprivan at 30mcg, SR, receiving levo at 4mcg, tolerates feeding, v/s stable, no pain, pt cleaned, changed and repositioned.
--- NOTE | 2018-09-24 18:21 | NUR ---
RT NOTE PT REMAINS MECHANICALLY VENTILATED VIA 7.5 ETT 24 CM @ LIP. ETT SECURE. CUFF INFLATED VIA CLINICAL TECHNOLOGIST. VENTILATOR SETTINGS PRESCRIBED. ALARMS SET PER PROTOCOL AND AUDIBLE. VENT PLUGGED IN TO RED OUTLET. AMBU BAG AT BED SIDE. NO DISTRESS NOTED. Addendum: 09/24/18 at 1821 by NEGAR BOTELLO RT Amended: Links added.
[2018-09-25] VITALS (105 sets, daily range): BP systolic 68–155; BP diastolic 32–86
[2018-09-25] MEDS: ALBUMIN 25% 25 GM in PREMIX 1 EA IV SCH ×2 (01:31→06:52)
[2018-09-25 04:43] LABS: BASOPHILS % (AUTO) 0.3 % (0.0-2.0); EOSINOPHILS % (AUTO) 8.2 % (0.0-6.0); HEMATOCRIT 22 % (39-51); HEMOGLOBIN 7.3 g/dL (13.5-17.5); LYMPHOCYTES # (AUTO) 0.6 /CMM (0.8-4.8); LYMPHOCYTES % (AUTO) 12.1 % (20.0-44.0); MEAN CORPUSCULAR HGB CONC 33 g/dl (31.0-36.0); MEAN CORPUSCULAR VOLUME 93 fL (80-96); MONOCYTES # (AUTO) 0.4 /CMM (0.1-1.30); MONOCYTES % (AUTO) 7.3 % (2.0-12.0); NEUTROPHILS # (AUTO) 3.5 /CMM (1.8-8.9); NEUTROPHILS % (AUTO) 72.1 % (43.0-81.0); PLATELET COUNT (AUTO) 71 /CMM (150-450); RED BLOOD CELL COUNT(AUTO) 2.34 MIL/uL (4.5-6.0); WHITE BLOOD COUNT (AUTO) 4.9 K/uL (4.3-11.0)
[2018-09-25 05:01] LABS: CALCIUM, SERUM 9.3 mg/dL (8.5-10.1); CARBON DIOXIDE 27 mmol/L (21-32); CHLORIDE 106 mmol/L (98-107); CREATININE 3.3 mg/dL (0.6-1.3); GLUCOSE 139 mg/dL (74-106); MAGNESIUM 2.4 mg/dL (1.8-2.4); PHOSPHORUS 5.7 mg/dL (2.5-4.9); POTASSIUM 3.8 mmol/L (3.5-5.1); SODIUM SERUM 145 mmol/L (136-145); UREA NITROGEN, BLOOD 67 mg/dL (7-18)
[2018-09-25] MEDS: PROPOFOL 100 ML IV PRN ×2 (05:11→08:03)
[2018-09-25 05:52] LABS: BAND % (MANUAL) 1 % (0.0-5.0); EOSINOPHILS % (MANUAL) 6 % (0-4); LYMPHOCYTES % (MANUAL) 7 % (16-48); MONOCYTES % (MANUAL) 7 % (0-11.0); NEUTROPHILS % (MANUAL) 79 (42-76)
[2018-09-25] MEDS: BLOOD SUGAR DIAGNOSTIC 1 EACH STRIP IN SCH ×3 (05:56→17:23)
[2018-09-25] MEDS: INSULIN REGULAR, HUMAN 100 UNIT/ML 3 ML VIAL SQ PRN ×2 (06:01→17:26)
[2018-09-25] MEDS: NEPRO 1,000 ML BOTTLE GT PRN (06:25)
[2018-09-25] MEDS: NOREPINEPHRINE 16 MG in IV D5W 500 ML IV PRN ×2 (06:26→17:25)
[2018-09-25 07:48] LABS: IRON, SERUM 37 ug/dl (50-175); TOTAL IRON BINDING CAPACITY 67 ug/dl (250-450)
[2018-09-25 08:02] LABS: FERRITIN 718 ng/mL (8-388)
[2018-09-25] MEDS: MEROPENEM 500 MG in IV NS 0.9% 50 ML IV SCH ×2 (08:24→20:22)
[2018-09-25] MEDS: MULTIVIT W/MINERALS 1 TAB TABLET PO SCH (08:24)
[2018-09-25] MEDS: QUETIAPINE FUMARATE 25 MG TABLET PO SCH ×3 (08:25→16:25)
[2018-09-25] MEDS: MEMANTINE HCL 5 MG TABLET PO SCH ×2 (08:25→16:25)
[2018-09-25] MEDS: LACTOBACILLUS RHAMNOSUS GG 1 EACH CAP.SPRINK PO SCH ×2 (08:25→16:25)
[2018-09-25] MEDS: AMIODARONE HCL 200 MG TABLET PO SCH (08:25)
[2018-09-25] MEDS: SERTRALINE HCL 50 MG TABLET PO SCH (08:25)
--- NOTE | 2018-09-25 08:54 | NUR ---
INITIAL TRUCKING SUPERVISOR NOTE RCVD PT SEDATED ON DIPRIVAN, INTUBATED .07/21 AT LIP, HYPOTHERMIC 94.6 RECTALLY. SUSANA HUGGER RESUMED. SR ON MONITOR WITH OCCASIONAL PACs, NO SIGNS OF DISTRESS OBSERVED, TOLERATING ORDERED VENT SETTINGS, OG-TUBE PLACEMENT VERIFIED BY ASPIRATION OF GASTRIC CONTENTS AND CX THIS AM. ORTIZ TO GRAVITY DRAINING CLOUDY, YELLOW URINE. SOFT BM THIS AM. REMY PICC C/D/I/PATENT, RIGHT FEMORAL HD CATH DRESSING C/D/I. TOLERATING TUBE FEEDING RATE, LEVOPHED TITRATED ORDERED. WILL CONTINUE TO MONITOR PT FOR SAFETY AND COMFORT, BED IN LOW AND LOCKED POSITION, CALL LIGHT WITHIN REACH, HEAD OF BED ELEVATED.
[2018-09-25 10:52] LABS: ABG BASE EXCESS -0.1 mmol/L; ABG OXYGEN SATURATION 95.6 % (92.0-98.5); ABG PCO2 39.2 mmHg (35.0-45.0); ABG PH 7.413 (7.350-7.450); ABG PO2 91.4 mmHg (75.0-100.0); AaDO2 148.7 mmHg; COHb 1.1 % (0.5-1.5); MetHb 0.3 % (0.0-1.5); O2Hb 94.3 % (94.0-97.0); PEEP,BG 5 cm H2O; SITE, ABG Right Radial; VENT MODE, BG SIMV PS 15
--- NOTE | 2018-09-25 11:58 | NUR ---
HOTEL RESERVATION AGENT NOTE PT ON SIMV SINCE ~ 0930 THIS MORNING TOLERATING WELL, ABG REVIEWED BY DR. CARDENAS. WILL CONTINUE ON SIMV THROUGH THE DAY, WILL CONTINUE TO MONITOR PT.
[2018-09-25] MEDS: SOD FERRIC GLUC 125 MG in IV NS 0.9% 100 ML IV SCH (16:14)
[2018-09-25] MEDS: CHLORHEXIDINE GLUCONATE 15 ML UDC MM SCH (16:25)
[2018-09-25] MEDS ORDERED: VANCOMYCIN 1 GM in IV D5W 250 ML IV ONE (18:00)
--- NOTE | 2018-09-25 18:56 | NUR ---
ICU NOTE PT REMAINS STABLE, BILATERAL SOFT WRIST RESTRAINTS IN PLACE, CIRCULATION CHECKS DONE. NO SIGNS OF DISTRESS OBSERVED, ON SIMV MODE TOLERATING WELL, SR ON MONITOR, OG-TUBE WITH LITTLE TO NO RESIDUAL, ORTIZ TO GRAVITY DRAINING YELLOW URINE. REMY PICC C/D/I/PATENT, NO S/O INFILTRATION/PHLEBITIS OBSERVED, LEVO INFUSING ORDERED. PT'S CARE ENDORSED TO JACOB LOCKETT FOR CONTINUITY OF CARE, BED IN LOW AND LOCKED POSITION, HEAD OF BED ELEVATED.
--- NOTE | 2018-09-25 20:00 | NUR ---
SCIENTIFIC GLASS BLOWER - NOTES - RECEIVED PT OFF DIP SINCE 829, INTUBATED 7.07/21 AT LIP, TEMP WNL. SR ON MONITOR WITH OCCASIONAL PACs, NO SIGNS OF DISTRESS OBSERVED, TOLERATING ORDERED VENT SETTINGS, OG-TUBE PLACEMENT VERIFIED BY ASPIRATION OF GASTRIC CONTENTS AND CX THIS AM. ORTIZ TO GRAVITY DRAINING CLOUDY, YELLOW URINE. REMY PICC C/D/I/PATENT, DRESSING CHANGED, RIGHT FEMORAL HD CATH DRESSING C/D/I. TOLERATING TUBE FEEDING RATE, LEVOPHED TITRATED ORDERED. WILL CONTINUE TO MONITOR PT FOR SAFETY AND COMFORT, BED IN LOW AND LOCKED POSITION, CALL LIGHT WITHIN REACH, HEAD OF BED ELEVATED.
[2018-09-26] VITALS (73 sets, daily range): BP systolic 92–118; BP diastolic 41–59
[2018-09-26] MEDS: BLOOD SUGAR DIAGNOSTIC 1 EACH STRIP IN SCH ×5 (00:14→23:52)
[2018-09-26 04:54] LABS: BASOPHILS % (AUTO) 0.4 % (0.0-2.0); EOSINOPHILS % (AUTO) 6.7 % (0.0-6.0); HEMATOCRIT 23 % (39-51); HEMOGLOBIN 7.6 g/dL (13.5-17.5); LYMPHOCYTES # (AUTO) 0.5 /CMM (0.8-4.8); LYMPHOCYTES % (AUTO) 10.4 % (20.0-44.0); MEAN CORPUSCULAR HGB CONC 33 g/dl (31.0-36.0); MEAN CORPUSCULAR VOLUME 93 fL (80-96); MONOCYTES # (AUTO) 0.4 /CMM (0.1-1.30); MONOCYTES % (AUTO) 9.2 % (2.0-12.0); NEUTROPHILS # (AUTO) 3.4 /CMM (1.8-8.9); NEUTROPHILS % (AUTO) 73.3 % (43.0-81.0); PLATELET COUNT (AUTO) 95 /CMM (150-450); RED BLOOD CELL COUNT(AUTO) 2.48 MIL/uL (4.5-6.0); WHITE BLOOD COUNT (AUTO) 4.6 K/uL (4.3-11.0)
[2018-09-26 05:11] LABS: CARBON DIOXIDE 30 mmol/L (21-32); CHLORIDE 110 mmol/L (98-107); CREATININE 2.3 mg/dL (0.6-1.3); GLUCOSE 121 mg/dL (74-106); PHOSPHORUS 4.1 mg/dL (2.5-4.9); SODIUM SERUM 147 mmol/L (136-145); UREA NITROGEN, BLOOD 53 mg/dL (7-18)
--- NOTE | 2018-09-26 07:10 | NUR ---
RN NOTES RECEIVED PT ON BED, INTUBATED, TOLERATING VENT SETTING WELL, ON TELE SR HR IN 70'S, NO SIGNS OF DISTRESS OBSERVED, OG-TUBE PLACEMENT VERIFIED BY ASPIRATION OF GASTRIC CONTENTS , NEPRO AT 45CC/HR RUNNING , ORTIZ TO GRAVITY DRAINING CLOUDY, YELLOW URINE. REMY PICC C/D/I/PATENT, RIGHT FEMORAL HD CATH DRESSING C/D/I. LEVOPHED AT 1 MCG /MIN RUNNING , WILL CONTINUE TO MONITOR PT FOR SAFETY AND COMFORT,SR UP x3, CALL LIGHT WITHIN EASY REACH, BED LOCKED AND IN LOWEST POSITION. CONTINUE TO MONITOR .
[2018-09-26] MEDS: NEPRO 1,000 ML BOTTLE GT PRN (07:13)
--- NOTE | 2018-09-26 07:54 | NUR ---
WOUND CARE CONSULT: PT PRESENTS WITH RT ARM SKIN TEAR AND BILATERAL HEEL INTACT PURPLE DEEP TISSUE INJURIES. PT IS CURRENTLY INTUBATED AND INCONTINENT OF STOOL. 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 FURTHER SKIN BREAKDOWN MAY BE UNAVOIDABLE DUE TO MULTIPLE CO-MORBIDITIES. PT ON FIRST STEP [facility] LOW AIRLOSS MATTRESS. ALL SKIN PROTECTION MEASURES IN PLACE. RECOMMENDATIONS FOR WOUND CARE AND CONTINUED SKIN PROTECTION DISCUSSED WITH NURSING STAFF. WILL SEE PRN. GREEN IN AGREEMENT WITH PLAN OF CARE. Addendum: 09/26/18 at 0759 by JEFERSON PICKARD Amended: Links added. Addendum: 09/26/18 at 0804 by JEFERSON PICKARD PER NURSING STAFF, PT WAS PREVIOUSLY VERY COMBATIVE AND WAS NOTED TO BE KICKING THE DIALYSIS MACHINE.
[2018-09-26] MEDS: LACTOBACILLUS RHAMNOSUS GG 1 EACH CAP.SPRINK PO SCH ×2 (08:25→16:16)
[2018-09-26] MEDS: PANTOPRAZOLE 40 MG/PACK PACK GT SCH (08:25)
[2018-09-26] MEDS: MULTIVIT W/MINERALS 1 TAB TABLET PO SCH (08:25)
[2018-09-26] MEDS: MEMANTINE HCL 5 MG TABLET PO SCH ×2 (08:26→16:16)
[2018-09-26] MEDS: SERTRALINE HCL 50 MG TABLET PO SCH (08:26)
[2018-09-26] MEDS: AMIODARONE HCL 200 MG TABLET PO SCH (08:26)
[2018-09-26] MEDS: CHLORHEXIDINE GLUCONATE 15 ML UDC MM SCH ×2 (08:26→16:16)
[2018-09-26] MEDS: MEROPENEM 500 MG in IV NS 0.9% 50 ML IV SCH ×2 (08:28→21:16)
[2018-09-26] MEDS: QUETIAPINE FUMARATE 25 MG TABLET PO SCH ×3 (09:00→16:16)
--- NOTE | 2018-09-26 09:23 | NUR ---
RN NOTES SEROQUEL HELD PER DR RONALD HEAD .
[2018-09-26 10:24] LABS: BAND % (MANUAL) 6 % (0.0-5.0); EOSINOPHILS % (MANUAL) 3 % (0-4); LYMPHOCYTES % (MANUAL) 7 % (16-48); MONOCYTES % (MANUAL) 6 % (0-11.0); NEUTROPHILS % (MANUAL) 78 (42-76)
--- NOTE | 2018-09-26 11:00 | NUR ---
RN NOTES LEVO DECREASED TO TO .5 MCG/MIN, PT IS VERY SENSITIVE TO LEVO , VSS STABLE, AT THIS TIME , CONTINUE TO MONITOR.
[2018-09-26] MEDS: SOD FERRIC GLUC 125 MG in IV NS 0.9% 100 ML IV SCH (13:37)
--- NOTE | 2018-09-26 14:00 | NUR ---
RN NOTES TOLERATING TF WELL, NO DISTRESS NOTED, ETT SUCTIONING DONE . CONTINUE TO MONITOR.
--- NOTE | 2018-09-26 15:00 | NUR ---
RN NOTES LEVO D/ZULEIKA , BP STABLE AT THIS TIME, CONTINUE TO MONITOR .
--- NOTE | 2018-09-26 18:06 | NUR ---
RN NOTES PT REMAINS INTUBATED, VSS STABLE, [place] VENT SETTING WELL, NO TF RESIDUAL NOTED , SR UPx3, CALL LIGHT WITHIN EASY REACH , BED LOCKED AND IN LOWEST POSITION, WILL ENDORSE TO ANIMAL HUSBANDRY MANAGER NURSE FOR CONTINUITY OF CARE
--- NOTE | 2018-09-26 19:30 | NUR ---
Received patient resting in no acute distress.Intubated to vent on SIMV Mode.Vent settings well tolerated SPO2 100%.SR with BBB per tele monitoring with stable vital signs.CVP reading 4-6.Tube feeding in progress no residual noted.Tube placement verified and patent.HOB elevated FC to gravity drainage with yellow urine.Turned and repositioned.Continue monitoring.
[2018-09-26] MEDS: INSULIN REGULAR, HUMAN 100 UNIT/ML 3 ML VIAL SQ PRN (23:53)
[2018-09-27] VITALS (72 sets, daily range): BP systolic 96–127; BP diastolic 43–66
[2018-09-27] MEDS ORDERED: IV NS 0.9% 500 ML BAG IV ONE (02:00)
[2018-09-27] MEDS ORDERED: IV NS 0.9% 250 ML IV ONE (02:00)
[2018-09-27 04:50] LABS: BASOPHILS % (AUTO) 0.5 % (0.0-2.0); EOSINOPHILS % (AUTO) 4.7 % (0.0-6.0); HEMATOCRIT 24 % (39-51); HEMOGLOBIN 7.8 g/dL (13.5-17.5); LYMPHOCYTES # (AUTO) 0.7 /CMM (0.8-4.8); LYMPHOCYTES % (AUTO) 13.5 % (20.0-44.0); MEAN CORPUSCULAR HGB CONC 33 g/dl (31.0-36.0); MEAN CORPUSCULAR VOLUME 94 fL (80-96); MONOCYTES # (AUTO) 0.5 /CMM (0.1-1.30); MONOCYTES % (AUTO) 9.9 % (2.0-12.0); NEUTROPHILS # (AUTO) 3.9 /CMM (1.8-8.9); NEUTROPHILS % (AUTO) 71.4 % (43.0-81.0); PLATELET COUNT (AUTO) 142 /CMM (150-450); RED BLOOD CELL COUNT(AUTO) 2.53 MIL/uL (4.5-6.0); WHITE BLOOD COUNT (AUTO) 5.5 K/uL (4.3-11.0)
[2018-09-27 05:06] LABS: CALCIUM, SERUM 9.3 mg/dL (8.5-10.1); CARBON DIOXIDE 28 mmol/L (21-32); CHLORIDE 109 mmol/L (98-107); GLUCOSE 121 mg/dL (74-106); MAGNESIUM 2.3 mg/dL (1.8-2.4); PHOSPHORUS 5.9 mg/dL (2.5-4.9); POTASSIUM 4.3 mmol/L (3.5-5.1); SODIUM SERUM 146 mmol/L (136-145)
[2018-09-27 05:22] LABS: UREA NITROGEN, BLOOD 80 mg/dL (7-18)
[2018-09-27] MEDS: BLOOD SUGAR DIAGNOSTIC 1 EACH STRIP IN SCH ×3 (05:30→17:29)
--- NOTE | 2018-09-27 06:45 | NUR ---
Patient resting in no acute distress.No significant change noted all throughout the shift. Vent settings well tolerated.GT feeding tolerated.AM care done.Turned and repositioned. VS remains stable.FSBS within normal limits.Will endorse to day shift for continuity of care.
--- NOTE | 2018-09-27 06:57 | NUR ---
AL labs resulted BUN 80.Per report patient will have HD today.Will endorse to day shift for continuity of care.
--- NOTE | 2018-09-27 07:00 | NUR ---
RN NOTES RECEIVED PT ON BED, INTUBATED, TOLERATING VENT SETTING WELL, ON TELE SR HR IN 70'S, NO SIGNS OF DISTRESS OBSERVED, OG-TUBE PLACEMENT VERIFIED BY ASPIRATION OF GASTRIC CONTENTS , NEPRO AT 45CC/HR RUNNING , ORTIZ TO GRAVITY DRAINING CLOUDY, YELLOW URINE. REMY PICC C/D/I/PATENT, RIGHT FEMORAL HD CATH DRESSING C/D/I. WILL CONTINUE TO MONITOR PT FOR SAFETY AND COMFORT,SR UP x3, CALL LIGHT WITHIN EASY REACH, BED LOCKED AND IN LOWEST POSITION. CONTINUE TO MONITOR .
[2018-09-27] MEDS: NEPRO 1,000 ML BOTTLE GT PRN (08:09)
[2018-09-27] MEDS: MEROPENEM 500 MG in IV NS 0.9% 50 ML IV SCH ×2 (08:09→20:25)
[2018-09-27] MEDS: SERTRALINE HCL 50 MG TABLET PO SCH (08:10)
[2018-09-27] MEDS: PANTOPRAZOLE 40 MG/PACK PACK GT SCH (08:10)
[2018-09-27] MEDS: LACTOBACILLUS RHAMNOSUS GG 1 EACH CAP.SPRINK PO SCH ×2 (08:10→17:32)
[2018-09-27] MEDS: MULTIVIT W/MINERALS 1 TAB TABLET PO SCH (08:11)
[2018-09-27] MEDS: AMIODARONE HCL 200 MG TABLET PO SCH (08:11)
[2018-09-27] MEDS: MEMANTINE HCL 5 MG TABLET PO SCH ×2 (08:11→17:32)
[2018-09-27] MEDS: CHLORHEXIDINE GLUCONATE 15 ML UDC MM SCH ×2 (08:11→17:29)
[2018-09-27 08:12] LABS: ABG BASE EXCESS 0.9 mmol/L; ABG OXYGEN SATURATION 97.3 % (92.0-98.5); ABG PCO2 44.6 mmHg (35.0-45.0); ABG PH 7.385 (7.350-7.450); ABG PO2 125.3 mmHg (75.0-100.0); AaDO2 108.6 mmHg; COHb 1.1 % (0.5-1.5); MetHb 0.3 % (0.0-1.5); O2Hb 95.9 % (94.0-97.0); PEEP,BG 5 cm H2O; SITE, ABG Right Radial; VT, ABG 500 mL
[2018-09-27] MEDS: PROSOURCE / PROSTAT (PYXIS) 30 ML UDC GT SCH ×2 (08:12→17:32)
[2018-09-27] MEDS: INSULIN REGULAR, HUMAN 100 UNIT/ML 3 ML VIAL SQ PRN (11:49)
[2018-09-27] MEDS: SOD FERRIC GLUC 125 MG in IV NS 0.9% 100 ML IV SCH (14:09)
--- NOTE | 2018-09-27 15:59 | NUR ---
RN NOTES PT RECEIVING HD AT THIS TIME .
--- NOTE | 2018-09-27 18:30 | NUR ---
RN NOTES VSS STABLE, ETT AND ORAL SUCTIONING DONE, NO TF RESIDUAL NOTED, ORTIZ DRINING TO GRAVITY, SR UP x3, NO SIGNIFICANT CHANGES NOTED ON THIS SHIFT , WILL ENDOSE TO APPLICATION DEVELOPMENT LIAISON NURSE FOR CONTINUITY OF CARE.
--- NOTE | 2018-09-27 18:40 | NUR ---
RT END OF THE SHIFT REPORT, PT REC. 0700 AM PT. 88 Y OLD MALE REMAIN ORALLY INTUBATED ETT # 7.5 @ 23 CM LIPLINE WITH NOTED SETTINGS, ALARMS ARE SET AND FUNCTIONAL, B/S BILATERALLY FINE, MINIMAL SECRETIONS HME CHANGED, INORGANIC CHEMISTRY PROFESSOR DONE, NO VENT CHANGES PT. ON SIMV MODE. EQUAL CHEST RISE NOTED. AMBU BAG REMAIN AT THE BEDSIDE. T/O DAY PT. BILATERALLY RALES B/S, MINIMAL SUX'D FOR WHITE THICK SECRETIONS. PT. REMAIN STABLE WILL CONTINUE TO MONITOR. REPORT WILL PASS TO PM SHIFT. Addendum: 09/27/18 at 1841 by SHORTY THOMPSON RT Amended: Links added.
--- NOTE | 2018-09-27 19:30 | NUR ---
pt had HD today, no vanco post hd, tumor registrar shanice notified, also tumor registrar fuad notified, no new orders
--- NOTE | 2018-09-27 22:45 | NUR ---
pts daughter Isaura Franz (speaks burmese) - [phone] and pts Isaura Hutchinson (citizen of [place] speaking) - [phone] at bedside, they want to talk to doctor about plan of care, will endorse to day shift.
[2018-09-28] VITALS (49 sets, daily range): BP systolic 102–124; BP diastolic 47–64
[2018-09-28] MEDS: BLOOD SUGAR DIAGNOSTIC 1 EACH STRIP IN SCH ×4 (00:06→17:04)
[2018-09-28] MEDS: INSULIN REGULAR, HUMAN 100 UNIT/ML 3 ML VIAL SQ PRN ×3 (00:13→17:03)
[2018-09-28 04:52] LABS: BASOPHILS % (AUTO) 0.7 % (0.0-2.0); EOSINOPHILS % (AUTO) 5.2 % (0.0-6.0); HEMATOCRIT 23 % (39-51); HEMOGLOBIN 7.8 g/dL (13.5-17.5); LYMPHOCYTES # (AUTO) 0.9 /CMM (0.8-4.8); LYMPHOCYTES % (AUTO) 14.6 % (20.0-44.0); MEAN CORPUSCULAR HGB CONC 33 g/dl (31.0-36.0); MEAN CORPUSCULAR VOLUME 93 fL (80-96); MONOCYTES # (AUTO) 0.7 /CMM (0.1-1.30); MONOCYTES % (AUTO) 10.5 % (2.0-12.0); NEUTROPHILS # (AUTO) 4.4 /CMM (1.8-8.9); PLATELET COUNT (AUTO) 199 /CMM (150-450); RED BLOOD CELL COUNT(AUTO) 2.51 MIL/uL (4.5-6.0); WHITE BLOOD COUNT (AUTO) 6.3 K/uL (4.3-11.0)
[2018-09-28 05:10] LABS: ALANINE AMINOTRANSFERASE 67 U/L (12-78); ALBUMIN 2.1 g/dL (3.4-5.0); ALKALINE PHOSPHATASE 495 U/L (46-116); ASPARTATE AMINOTRANSFERASE 110 U/L (15-37); BILIRUBIN,TOTAL 0.4 mg/dL (0.2-1.0); CALCIUM, SERUM 8.6 mg/dL (8.5-10.1); CARBON DIOXIDE 29 mmol/L (21-32); CHLORIDE 107 mmol/L (98-107); CREATININE 2.4 mg/dL (0.6-1.3); GLUCOSE 133 mg/dL (74-106); MAGNESIUM 2.1 mg/dL (1.8-2.4); PHOSPHORUS 4.9 mg/dL (2.5-4.9); POTASSIUM 4.1 mmol/L (3.5-5.1); SODIUM SERUM 145 mmol/L (136-145); TOTAL PROTEIN, SERUM 5.5 g/dL (6.4-8.2); UREA NITROGEN, BLOOD 64 mg/dL (7-18)
[2018-09-28] MEDS: NEPRO 1,000 ML BOTTLE GT PRN (06:26)
--- NOTE | 2018-09-28 07:30 | NUR ---
FOOD PROCESSOR INITIAL NOTE RECEIVED PATIENT OBTUNDED. NO S/S OF PAIN OR DISCOMFORT. NO RESPIRATORY DISTRESS NOTED. ETT 7.5/24CM LIP, VENT SETTINGS SIMV 4, 500, FIO2 40% PEEP 5, PSV 15. ON TELE MONITOR SR. OGT PATENT, INTACT, IN PLACE, NO RESIDUAL NOTED. GTF AT 45ML/HR. F/C PATENT, INTACT, DRAINING BY GRAVITY. BILATERAL SOFT RESTRAINT IN PLACE, CIRCULATION CHECKED. SEE AND EXAMINED BY TREATMENT NURSE JEFERSON. REMY PICC LINE PATENT AND INTACT, TKO AND CVP CONNECTED. HOB ELEVATED. TURNED AND REPOSITIONED. SIDE RAILS UP AND LOCKED. BED KEPT AT LOWEST POSITION. WILL CONTINUE TO MONITOR.
--- NOTE | 2018-09-28 07:54 | NUR ---
WOUND CARE FOLLOWUP: REASSESSMENT OF HEELS DONE TODAY. PT HAS INTACT DEEP TISSUE INJURIES TO HEELS, NO DRAINAGE NOTED. CONTINUE PRESENT TREATMENT. HEELS FLOATED. DISCUSSED WITH NURSING STAFF. WILL SEE PRN. Addendum: 09/28/18 at 0755 by JEFERSON HAYES WNDNU Amended: Links added.
[2018-09-28 08:18] LABS: ABG BASE EXCESS 1.9 mmol/L; ABG OXYGEN SATURATION 97.7 % (92.0-98.5); ABG PCO2 42.9 mmHg (35.0-45.0); ABG PH 7.412 (7.350-7.450); ABG PO2 152.7 mmHg (75.0-100.0); AaDO2 83.2 mmHg; COHb 0.7 % (0.5-1.5); MetHb 0.2 % (0.0-1.5); O2Hb 96.8 % (94.0-97.0); PEEP,BG 5 cm H2O; SITE, ABG Right Radial; VENT MODE, BG SIMV 4 / PS 15; VT, ABG 500 mL
--- NOTE | 2018-09-28 08:30 | NUR ---
horticulture superintendent note abg done, RT decrease fio2 to 28%, tolerating well at this time. will continue to monitor.
--- NOTE | 2018-09-28 09:21 | NUR ---
PRACTICE PERFORMANCE MANAGER NOTE SEEN AND EXAMINED BY DR. CARDENAS, AT BEDSIDE AND SUPERINTENDENT COMPRESSOR STATIONS AT BEDSIDE. DISCUSSED PEG AND TRACH PLACEMENT. AGREED TO PLACEMENT.
[2018-09-28] MEDS: PANTOPRAZOLE 40 MG/PACK PACK GT SCH (09:25)
[2018-09-28] MEDS: MEROPENEM 500 MG in IV NS 0.9% 50 ML IV SCH (09:25)
[2018-09-28] MEDS: SERTRALINE HCL 50 MG TABLET PO SCH (09:25)
[2018-09-28] MEDS: CHLORHEXIDINE GLUCONATE 15 ML UDC MM SCH ×2 (09:25→17:00)
[2018-09-28] MEDS: MULTIVIT W/MINERALS 1 TAB TABLET PO SCH (09:25)
[2018-09-28] MEDS: MEMANTINE HCL 5 MG TABLET PO SCH ×2 (09:26→17:00)
[2018-09-28] MEDS: AMIODARONE HCL 200 MG TABLET PO SCH (09:26)
[2018-09-28] MEDS: LACTOBACILLUS RHAMNOSUS GG 1 EACH CAP.SPRINK PO SCH ×2 (09:26→17:00)
[2018-09-28] MEDS: PROSOURCE / PROSTAT (PYXIS) 30 ML UDC GT SCH ×2 (09:27→17:00)
--- NOTE | 2018-09-28 09:46 | NUR ---
PRODUCTION REPRODUCTION MANAGER NOTE GI HOUSE PRINCIPAL JONE AWARE REGARDING PEG PLACEMENT AGREEMENT BY .
--- NOTE | 2018-09-28 11:45 | NUR ---
CLINICAL PROJECT ASSISTANT NOTE SEEN AND EXAMINED BY DR. MYRICK
[2018-09-28] MEDS: SOD FERRIC GLUC 125 MG in IV NS 0.9% 100 ML IV SCH (15:37)
--- NOTE | 2018-09-28 19:10 | NUR ---
SIDER CLOSING NOTE RECEIVED CALL IN THE AFTERNOON FROM SURGERY, PATIENT WILL HAVE SURGERY AT 0730 TOMORROW MORNING. AYO WAS MADE AWARE. ALL DUE MEDS GIVEN. NO RESPIRATORY DISTRESS NOTED. TOLERATING CURRENT VENT SETTINGS. TOLERATING GTF. OGT PATENT, INTACT, IN PLACE. F/C PATENT, INTACT, IN PLACE. BILATERAL SOFT WRIST RESTRAINTS IN PLACE. KEPT CLEAN AND DRY. TURNED AND REPOSITIONED Q2 AND PRN. HOB ELEVATED. SIDE RAILS UP AND LOCKED. BED KEPT AT LOWEST POSITION. WILL ENDORSE CONTINUITY OF CARE TO PM NURSE.
[2018-09-29] VITALS (26 sets, daily range): BP systolic 111–129; BP diastolic 53–66
[2018-09-29] MEDS: INSULIN REGULAR, HUMAN 100 UNIT/ML 3 ML VIAL SQ PRN ×3 (00:58→11:52)
[2018-09-29] MEDS: BLOOD SUGAR DIAGNOSTIC 1 EACH STRIP IN SCH ×4 (00:58→17:38)
[2018-09-29 04:35] LABS: BASOPHILS # (AUTO) 0.1 /CMM (0.0-0.2); EOSINOPHILS % (AUTO) 5.5 % (0.0-6.0); HEMATOCRIT 24 % (39-51); LYMPHOCYTES # (AUTO) 0.8 /CMM (0.8-4.8); LYMPHOCYTES % (AUTO) 12.7 % (20.0-44.0); MEAN CORPUSCULAR HGB CONC 34 g/dl (31.0-36.0); MEAN CORPUSCULAR VOLUME 93 fL (80-96); MONOCYTES # (AUTO) 0.5 /CMM (0.1-1.30); MONOCYTES % (AUTO) 8.7 % (2.0-12.0); NEUTROPHILS # (AUTO) 4.5 /CMM (1.8-8.9); NEUTROPHILS % (AUTO) 72.1 % (43.0-81.0); PLATELET COUNT (AUTO) 264 /CMM (150-450); RED BLOOD CELL COUNT(AUTO) 2.55 MIL/uL (4.5-6.0); WHITE BLOOD COUNT (AUTO) 6.2 K/uL (4.3-11.0)
[2018-09-29 04:49] LABS: ALANINE AMINOTRANSFERASE 96 U/L (12-78); ALBUMIN 2.2 g/dL (3.4-5.0); ALKALINE PHOSPHATASE 519 U/L (46-116); ASPARTATE AMINOTRANSFERASE 137 U/L (15-37); BILIRUBIN,TOTAL 0.3 mg/dL (0.2-1.0); CALCIUM, SERUM 8.6 mg/dL (8.5-10.1); CARBON DIOXIDE 29 mmol/L (21-32); CHLORIDE 109 mmol/L (98-107); CREATININE 2.8 mg/dL (0.6-1.3); GLUCOSE 130 mg/dL (74-106); MAGNESIUM 2.2 mg/dL (1.8-2.4); PHOSPHORUS 5.8 mg/dL (2.5-4.9); POTASSIUM 4.2 mmol/L (3.5-5.1); SODIUM SERUM 146 mmol/L (136-145); TOTAL PROTEIN, SERUM 5.6 g/dL (6.4-8.2)
[2018-09-29 04:52] LABS: UREA NITROGEN, BLOOD 90 mg/dL (7-18)
--- NOTE | 2018-09-29 06:39 | NUR ---
RN NOTES PATIENT IN BED WITH NO APPARENT DISTRESS, BREATHING EVEN AND UNLABORED. VENT SETTING WELL TOLERATED. NO PHYSICAL MANIFESTATION OF PAIN OR DISCOMFORT. OPENS EYES WITH NO EYE CONTACT, NON VERBAL. DOESNT FOLLOW COMMANDS. FC IN PLACE AND INTACT DRAINING CLEAR YELLOW WITH NO FOUL ODOR URINE. FOR TRACH PLACEMENT AT 0730. CONSENT SIGNED. NPO SINCE MIDNIGHT. KEPT CLEAN AND DRY. WILL ENDORSE TO NEXT SHIFT FOR CONTINUITY OF CARE.
[2018-09-29] MEDS ORDERED: ANESTHESIA TRAY IN PYXIS 1 EA TRAY MC ONE (07:12)
[2018-09-29] MEDS ORDERED: LIDOCAINE HCL/MPF 1% 30 ML VIAL IJ ONE (07:12)
--- NOTE | 2018-09-29 07:30 | NUR ---
YARD STOCKER INITIAL NOTE RECEIVED PATIENT OBTUNDED. NO S/S OF PAIN OR DISCOMFORT. NO RESPIRATORY DISTRESS NOTED. ETT 7.5/24CM LIP, VENT SETTINGS SIMV 4, 500, FIO2 28% PEEP 5, PSV 15. ON TELE MONITOR SR. OGT PATENT, INTACT, IN PLACE, NO RESIDUAL NOTED, CLAMPED. F/C PATENT, INTACT, DRAINING BY GRAVITY. BILATERAL SOFT RESTRAINT IN PLACE, CIRCULATION CHECKED. REMY PICC LINE PATENT AND INTACT, TKO AND CVP CONNECTED. HOB ELEVATED. TURNED AND REPOSITIONED. SIDE RAILS UP AND LOCKED. BED KEPT AT LOWEST POSITION. WILL CONTINUE TO MONITOR.
--- NOTE | 2018-09-29 07:57 | NUR ---
WINK CUTTER OPERATOR NOTE RECEIVED CALL FROM SURGERY, PER NURSE DR AVILES CANCELLED THE CASE DUE TO HE DID NOT KNOW HE HAD THE PATIENT FOR SURGERY TODAY.
[2018-09-29] MEDS: NEPRO 1,000 ML BOTTLE GT PRN (08:00)
--- NOTE | 2018-09-29 08:56 | NUR ---
C D AREA SUPERVISOR NOTE INFORMED AND DAUGHTER REGARDING CANCELLED SURGERY.
[2018-09-29] MEDS: PROSOURCE / PROSTAT (PYXIS) 30 ML UDC GT SCH ×2 (09:18→17:43)
[2018-09-29] MEDS: AMIODARONE HCL 200 MG TABLET PO SCH (09:18)
[2018-09-29] MEDS: LACTOBACILLUS RHAMNOSUS GG 1 EACH CAP.SPRINK PO SCH ×2 (09:18→17:39)
[2018-09-29] MEDS: MEMANTINE HCL 5 MG TABLET PO SCH ×2 (09:18→17:39)
[2018-09-29] MEDS: MULTIVIT W/MINERALS 1 TAB TABLET PO SCH (09:18)
[2018-09-29] MEDS: CHLORHEXIDINE GLUCONATE 15 ML UDC MM SCH ×2 (09:18→17:39)
[2018-09-29] MEDS: SERTRALINE HCL 50 MG TABLET PO SCH (09:18)
[2018-09-29] MEDS: PANTOPRAZOLE 40 MG/PACK PACK GT SCH (09:18)
--- NOTE | 2018-09-29 12:00 | NUR ---
ACCOUNT COLLECTOR NOTE SEEN AND EXAMINED BY DEANGELO DOOLEY WITH PLANS FOR PEG PLACEMENT IN MORNING 9AM, NPO MIDNIGHT.
[2018-09-29] MEDS: SOD FERRIC GLUC 125 MG in IV NS 0.9% 100 ML IV SCH (14:17)
--- NOTE | 2018-09-29 14:50 | NUR ---
CREDIT COLLECTIONS SPECIALIST NOTE DIALYSIS NURSE AT BEDSIDE
--- NOTE | 2018-09-29 15:00 | NUR ---
BUILD AND DEPLOYMENT ENGINEER NOTE INFORMED DAUGHTER AYO REGARDING PLANS FOR PEG PLACEMENT TOMORROW AM. SHE WILL RELAY TO HER MOTHER.
--- NOTE | 2018-09-29 17:43 | NUR ---
CENTRAL AISLE CASHIER NOTE PATIENT COMPLETED DIALYSIS WITH 500ML OUT. TOLERATED.
--- NOTE | 2018-09-29 19:24 | NUR ---
FRONT DESK PERSON CLOSING NOTE NO SIGNIFICANT CHANGES OVERNIGHT. NO S/S OF PAIN OR DISCOMFORT. NO RESPIRATORY DISTRESS NOTED. TOLERATING CURRENT VENT SETTINGS. FOR PEG, TRACH PLACEMENT IN AM, DAUGHTER AND AWARE. PER DR AVILES PATIENT FOR PERMACATH PLACEMENT IN AM BY DR. RANDOLPH, DAUGHTER CALLED FOR CONSENT, DAUGHTER WOULD LIKE TO SPEAK WITH MD BEFORE SIGNING CONSENT, MD AWARE. DAUGHTER REQUESTED FOR FLATWARE MAKER TO SPEAK WITH REGARDING GROUP HOME PLACEMENT. OGT PATENT, INTACT, IN PLACE, TOLERATING GTF. F/C PATENT, INTACT, IN PLACE. ALL DUE MEDS GIVEN. KEPT CLEAN AND DRY. TURNED AND REPOSITIONED Q2 AND PRN. SIDE RAILS UP AND LOCKED. BED KEPT AT LOWEST POSITION. CONTINUITY OF CARE ENDORSED TO PM NURSE.
[2018-09-30] VITALS (29 sets, daily range): BP systolic 117–148; BP diastolic 29–83
[2018-09-30] MEDS: BLOOD SUGAR DIAGNOSTIC 1 EACH STRIP IN SCH ×4 (00:17→17:16)
[2018-09-30 05:05] LABS: BASOPHILS # (AUTO) 0.1 /CMM (0.0-0.2); BASOPHILS % (AUTO) 1.2 % (0.0-2.0); EOSINOPHILS % (AUTO) 4.6 % (0.0-6.0); HEMATOCRIT 24 % (39-51); HEMOGLOBIN 7.9 g/dL (13.5-17.5); LYMPHOCYTES % (AUTO) 17.5 % (20.0-44.0); MEAN CORPUSCULAR HGB CONC 33 g/dl (31.0-36.0); MEAN CORPUSCULAR VOLUME 93 fL (80-96); MONOCYTES # (AUTO) 0.5 /CMM (0.1-1.30); MONOCYTES % (AUTO) 8.1 % (2.0-12.0); NEUTROPHILS # (AUTO) 4.1 /CMM (1.8-8.9); NEUTROPHILS % (AUTO) 68.6 % (43.0-81.0); PLATELET COUNT (AUTO) 316 /CMM (150-450); RED BLOOD CELL COUNT(AUTO) 2.54 MIL/uL (4.5-6.0)
[2018-09-30 05:13] LABS: ALANINE AMINOTRANSFERASE 104 U/L (12-78); ALBUMIN 2.1 g/dL (3.4-5.0); ALKALINE PHOSPHATASE 473 U/L (46-116); ASPARTATE AMINOTRANSFERASE 130 U/L (15-37); BILIRUBIN,TOTAL 0.3 mg/dL (0.2-1.0); CALCIUM, SERUM 8.5 mg/dL (8.5-10.1); CARBON DIOXIDE 31 mmol/L (21-32); CHLORIDE 109 mmol/L (98-107); GLUCOSE 140 mg/dL (74-106); MAGNESIUM 2.2 mg/dL (1.8-2.4); PHOSPHORUS 4.4 mg/dL (2.5-4.9); POTASSIUM 4.2 mmol/L (3.5-5.1); SODIUM SERUM 145 mmol/L (136-145); TOTAL PROTEIN, SERUM 5.6 g/dL (6.4-8.2); UREA NITROGEN, BLOOD 65 mg/dL (7-18)
[2018-09-30] MEDS ORDERED: ANESTHESIA TRAY IN PYXIS 1 EA TRAY MC ONE (06:53)
[2018-09-30] MEDS ORDERED: MIDAZOLAM HCL 2 MG/2ML VIAL ONE (06:54)
[2018-09-30] MEDS ORDERED: FENTANYL PF 100MCG/2ML AMPUL ONE (06:55)
[2018-09-30] MEDS ORDERED: ROCURONIUM BROMIDE 50 MG/5 ML ONE (06:55)
[2018-09-30] MEDS ORDERED: FAMOTIDINE/PF INJ 20 MG/2 ML VIAL IV ONE (06:55)
[2018-09-30] MEDS ORDERED: HEPARIN SODIUM, PORCINE 1,000 UNIT/ML VIAL ONE (06:58)
[2018-09-30] MEDS ORDERED: LIDOCAINE HCL/MPF 1% 30 ML VIAL IJ ONE (06:58)
--- NOTE | 2018-09-30 07:15 | NUR ---
ROCK WOOL INSULATOR NOTE SPOKE WITH DAUGHTER AYO AND RECEIVED TELEPHONE CONSENT FOR PERMACATH PLACEMENT THIS AM.
--- NOTE | 2018-09-30 07:45 | NUR ---
APPRENTICE LINEMAN THIRD STEP NOTE PT REMAINED STABLE DURING SHIFT. NO ACUTE DISTRESS NOTED. SURGERY TEAM PICKED UP PT WITH DR RANDOLPH AT BEDSIDE TO OR. ENDORSED TO NEXT SHIFT FOR CONTINUITY OF CARE.
--- NOTE | 2018-09-30 08:09 | NUR ---
RN NOTES 8064-PATIENT FOR SURGICAL PROCEDURES, REPORT TO OR TEAM GIVEN, DR RANDOLPH SEEN PATIENT. PATIENT TO OR WITH OR TEAM
--- NOTE | 2018-09-30 11:06 | NUR ---
RN NOTES SPOKE TO PATIENT DAUGHTER AYO, NOTED PATIENT OPENING EYES, NOT RESPONDING TO VOICE, AYO MADE AWARE
--- NOTE | 2018-09-30 12:26 | NUR ---
social human services assistants consult requested by Manuelito Stone DNP for long-term care placement options but evaluation is for case management for placement. SW informed Horticulture Professor Karen of aforementioned information, and confirmed that case management will be working with pt family once pt is stable to explore long-term placement options for discharge planning.
--- NOTE | 2018-09-30 13:09 | NUR ---
rn notes patient remaisn on vent. BP within acceptable range. noted to seem to opne eyes at times but not following commands.continue monitor status.
[2018-09-30] MEDS: Z GUARD REMEDY 2 OZ OINT TP PRN (13:14)
[2018-09-30] MEDS: PANTOPRAZOLE 40 MG/PACK PACK GT SCH (14:33)
[2018-09-30] MEDS: CHLORHEXIDINE GLUCONATE 15 ML UDC MM SCH ×2 (14:33→17:49)
[2018-09-30] MEDS: MEMANTINE HCL 5 MG TABLET PO SCH ×2 (14:34→17:49)
[2018-09-30] MEDS: AMIODARONE HCL 200 MG TABLET PO SCH (14:34)
[2018-09-30] MEDS: PROSOURCE / PROSTAT (PYXIS) 30 ML UDC GT SCH ×2 (14:34→17:49)
[2018-09-30] MEDS: MULTIVIT W/MINERALS 1 TAB TABLET PO SCH (14:34)
[2018-09-30] MEDS: LACTOBACILLUS RHAMNOSUS GG 1 EACH CAP.SPRINK PO SCH ×2 (14:34→17:49)
[2018-09-30] MEDS: SERTRALINE HCL 50 MG TABLET PO SCH (14:34)
--- NOTE | 2018-09-30 15:21 | NUR ---
RB NOTES 1400-PATIENT RESTING NO SIGN OF PAIN. BP WITHIN RANGE. 1515- VOICE COMMAND GIVEN TO PATIENT TO OPEN EYES, NO FOLLOWING THIS TIME.ASSOCIATE PROFESSOR OF ENGINEERING SPOKE TO MPATIENT IN THE ROOM
--- NOTE | 2018-09-30 18:51 | NUR ---
RN NOTES 1800-SPOKE TO DR CARDENAS EARLIER, OKAY TO D/C CVP READING. PATIENT BP WITHIN ACCEPTABLE RANGE.PATIENT NOT RESPONDING TO VOICE, NOT FOLLOWING COMMANDS, AWARE OF PATIENT NOT RESPONDING TO VOICE.NOTED WITH SOME GRIMACING WHEN REPOSITIONED SAFELY.
--- NOTE | 2018-09-30 19:30 | NUR ---
MANAGER STRATEGY & ACCOUNT: RECEIVED PT ON S/P TRACH, PERMA CATH AND PEG PLACEMENT. TRACH AND PERMA CATH SITES NOTED WT MINIMAL BLEEDING. CONTINUE PRESSURE APPLIED ON PERMA CATH SITE. PT REMAINS OBTUNDED, WITHDRAWS TO PAIN STIMULI. VENT SETTINGS ORDERED WT NO ACUTE DISTRESS, NO EVIDENCE OF DISCOMFORT. AFEBRILE. SR WT BBB ON TIRE CENTER SUPERVISOR. GT INTACT WT NO ACTIVE BLEED. REMY TKO WT NO S/S OF COMPLICATIONS. F/C PATENT AND INTACT DRAINING YELLOW URINE TO GRAVITY. HOB AT 35 DEGREES. BED LOCKED & IN LOWEST POSITION WT SIDE RAILS UP X3. WILL CONTINUE TO MONITOR.
[2018-09-30] MEDS: INSULIN REGULAR, HUMAN 100 UNIT/ML 3 ML VIAL SQ PRN (23:59)
[2018-10-01] VITALS (19 sets, daily range): BP systolic 87–130; BP diastolic 50–76
[2018-10-01 05:04] LABS: BASOPHILS # (AUTO) 0.1 /CMM (0.0-0.2); BASOPHILS % (AUTO) 1.1 % (0.0-2.0); EOSINOPHILS % (AUTO) 0.2 % (0.0-6.0); HEMATOCRIT 23 % (39-51); HEMOGLOBIN 7.8 g/dL (13.5-17.5); LYMPHOCYTES % (AUTO) 10.9 % (20.0-44.0); MEAN CORPUSCULAR HGB CONC 33 g/dl (31.0-36.0); MEAN CORPUSCULAR VOLUME 94 fL (80-96); MONOCYTES # (AUTO) 0.6 /CMM (0.1-1.30); MONOCYTES % (AUTO) 7.1 % (2.0-12.0); NEUTROPHILS # (AUTO) 7.2 /CMM (1.8-8.9); NEUTROPHILS % (AUTO) 80.7 % (43.0-81.0); PLATELET COUNT (AUTO) 374 /CMM (150-450)
[2018-10-01 05:19] LABS: ALANINE AMINOTRANSFERASE 57 U/L (12-78); ALBUMIN 2.2 g/dL (3.4-5.0); ALKALINE PHOSPHATASE 383 U/L (46-116); ASPARTATE AMINOTRANSFERASE 55 U/L (15-37); BILIRUBIN,TOTAL 0.4 mg/dL (0.2-1.0); CALCIUM, SERUM 8.1 mg/dL (8.5-10.1); CARBON DIOXIDE 29 mmol/L (21-32); CHLORIDE 111 mmol/L (98-107); CREATININE 2.6 mg/dL (0.6-1.3); GLUCOSE 140 mg/dL (74-106); MAGNESIUM 2.4 mg/dL (1.8-2.4); POTASSIUM 4.6 mmol/L (3.5-5.1); SODIUM SERUM 148 mmol/L (136-145); TOTAL PROTEIN, SERUM 5.8 g/dL (6.4-8.2); UREA NITROGEN, BLOOD 78 mg/dL (7-18)
[2018-10-01] MEDS: BLOOD SUGAR DIAGNOSTIC 1 EACH STRIP IN SCH ×4 (05:59→18:51)
[2018-10-01] MEDS: NEPRO 1,000 ML BOTTLE GT PRN (05:59)
[2018-10-01] MEDS: INSULIN REGULAR, HUMAN 100 UNIT/ML 3 ML VIAL SQ PRN (06:01)
--- NOTE | 2018-10-01 06:55 | NUR ---
SUPERVISOR ORE DRESSING: NO SIGNIFICANT ERICK DURING THE SHIFT. STILL OFF VASO PRESSORS. VS WITHIN HIS BASELINE. REMAINED OBTUNDED AND TOLERATING VENT SETTINGS ORDERED. STILL NOTED WT MINIMAL BLEEDING ON TRACH SITE AND PERMA CATH ON LEFT SUBCLAVIAN. STARTED HEMODIALYSIS. STARTED GTF AT 0600 ORDERED AT 25CC/HR. WILL ENDORSE TO DAY SHIFT FOR CONTINUITY OF CARE.
--- NOTE | 2018-10-01 07:15 | NUR ---
RN INITIAL NOTES RECEIVED PT OBTUNDED. TRACH IN PLACE, ON VENT. NO RESPIRATORY DISTRESS NOTED. NO SOB NOTED. NO SIGNS OF PAIN NOTED. LEFT SUBCLAVIAN HD CATH, REMY PICC , RIGHT FEMORAL CATH AND IN PLACE. GT IN PLACE. TOLERATING GTF AT 25ML/HR, GOAL AT 45ML/HR. NO RESIDUAL NOTED. FC IN PLACE. NO HEMATURIA NOTED. DIALYSIS ONGOING. WILL MONITOR VS. FOR CPAP TODAY. PT COMFORTABLE. WILL MONITOR.
--- NOTE | 2018-10-01 10:10 | NUR ---
JACOB NOTES HD DONE. REMOVED 1800ML OUT. TOLERATED WELL. VS WNL. WILL MONITOR Addendum: 10/01/18 at 1639 by TERRA LITTLE RN 1200 BILL HD NURSE REMOVED RIGHT FEMORAL HD CATH. PRESSURE DRESSING IN PLACE. WILL CLOSELY MONITOR
[2018-10-01] MEDS: CHLORHEXIDINE GLUCONATE 15 ML UDC MM SCH ×2 (10:39→16:23)
[2018-10-01] MEDS: SERTRALINE HCL 50 MG TABLET PO SCH (10:39)
[2018-10-01] MEDS: LACTOBACILLUS RHAMNOSUS GG 1 EACH CAP.SPRINK PO SCH ×2 (10:39→16:23)
[2018-10-01] MEDS: PANTOPRAZOLE 40 MG/PACK PACK GT SCH (10:40)
[2018-10-01] MEDS: MEMANTINE HCL 5 MG TABLET PO SCH ×2 (10:40→16:23)
[2018-10-01] MEDS: AMIODARONE HCL 200 MG TABLET PO SCH (10:40)
[2018-10-01] MEDS: MULTIVIT W/MINERALS 1 TAB TABLET PO SCH (10:40)
[2018-10-01] MEDS: PROSOURCE / PROSTAT (PYXIS) 30 ML UDC GT SCH ×2 (10:40→16:23)
--- NOTE | 2018-10-01 10:53 | NUR ---
RN NOTES SEEN AND EXAMINED BY EXAMINED BY DR ARSHAD. HD DONE, REMOVED 1800ML OUT. PT HAS LEFT SUBCLAVIAN HD CATH INSERTED YESTERDAY BY DR AVILES. ORDERED DC RIGHT FEMORAL HD CATH. DOM HD NURSE AWARE.
--- NOTE | 2018-10-01 17:00 | NUR ---
RN NOTES PT TRANSFERRED TO [facility]. BEDSIDE REPORT GIVEN TO JACOB SORIANO. TOOK OVER PT'S CARE.
[2018-10-01 18:32] LABS: ABG BASE EXCESS 3.1 mmol/L; ABG OXYGEN SATURATION 98.1 % (92.0-98.5); ABG PCO2 36.2 mmHg (35.0-45.0); ABG PH 7.485 (7.350-7.450); AaDO2 79.6 mmHg; COHb 0.9 % (0.5-1.5); MetHb 0.6 % (0.0-1.5); O2Hb 96.6 % (94.0-97.0); PEEP,BG 5 cm H2O; SITE, ABG Right Radial; VENT MODE, BG CPAP PS 15
--- NOTE | 2018-10-01 19:15 | NUR ---
CELESTINO RN OPENING NOTES RECEIVED PATIENT IN BED, OBTUNDED. ON MECHANICAL VENT TRACH SETTINGS ORDERED, TOLERATING WELL, NO SOB AND NO RESPIRATORY DISTRESS NOTED. NO SIGNS OF PAIN NOTED. LEFT SUBCLAVIAN HD CATH AND RIGHT FEMORAL CATH NOTED AND IN PLACE, SITES C/D/I. PER REPORT RIGHT FEMORAL CATH NOT WORKING. IV SITE REMY PICC, FLUSHING AND PATENT, SITE C/D/I, S/L. GT FEEDING NEPRO AT 35ML/HR, SITE C/D/I, 15ML RESIDUAL NOTED. FC IN PLACE AND OFF THE GROUND, YELLOW URINE NOTED. SAFETY MEASURES IN PLACE; BED LOCKED AND IN LOW POSITION, SIDE RAILS UPX2, HOB ELEVATED AT ALL TIMES, CALL LIGHT WITHIN REACH. WILL CONT TO MONITOR PT CLOSELY.
[2018-10-02] VITALS: BP 102/46
[2018-10-02] MEDS: BLOOD SUGAR DIAGNOSTIC 1 EACH STRIP IN SCH ×4 (00:45→17:38)
[2018-10-02] MEDS ORDERED: INSULIN REGULAR, HUMAN 100 UNIT/ML 3 ML VIAL ONE (01:48)
[2018-10-02] MEDS: INSULIN REGULAR, HUMAN 100 UNIT/ML 3 ML VIAL SQ PRN ×4 (02:02→17:40)
[2018-10-02 04:00] VITALS: BP 115/50
[2018-10-02 06:36] LABS: BASOPHILS # (AUTO) 0.1 /CMM (0.0-0.2); BASOPHILS % (AUTO) 1.5 % (0.0-2.0); EOSINOPHILS % (AUTO) 1.9 % (0.0-6.0); HEMATOCRIT 22 % (39-51); HEMOGLOBIN 7.3 g/dL (13.5-17.5); LYMPHOCYTES # (AUTO) 1.6 /CMM (0.8-4.8); LYMPHOCYTES % (AUTO) 16.7 % (20.0-44.0); MEAN CORPUSCULAR HGB CONC 33 g/dl (31.0-36.0); MEAN CORPUSCULAR VOLUME 93 fL (80-96); MONOCYTES # (AUTO) 0.8 /CMM (0.1-1.30); MONOCYTES % (AUTO) 8.6 % (2.0-12.0); NEUTROPHILS # (AUTO) 6.7 /CMM (1.8-8.9); NEUTROPHILS % (AUTO) 71.3 % (43.0-81.0); PLATELET COUNT (AUTO) 489 /CMM (150-450); RED BLOOD CELL COUNT(AUTO) 2.37 MIL/uL (4.5-6.0); WHITE BLOOD COUNT (AUTO) 9.4 K/uL (4.3-11.0)
[2018-10-02] MEDS: NEPRO 1,000 ML BOTTLE GT PRN (06:44)
[2018-10-02 06:49] LABS: ALANINE AMINOTRANSFERASE 38 U/L (12-78); ALBUMIN 2.1 g/dL (3.4-5.0); ALKALINE PHOSPHATASE 365 U/L (46-116); ASPARTATE AMINOTRANSFERASE 54 U/L (15-37); BILIRUBIN,TOTAL 0.3 mg/dL (0.2-1.0); CARBON DIOXIDE 27 mmol/L (21-32); CHLORIDE 106 mmol/L (98-107); GLUCOSE 159 mg/dL (74-106); MAGNESIUM 2.1 mg/dL (1.8-2.4); PHOSPHORUS 4.7 mg/dL (2.5-4.9); POTASSIUM 3.9 mmol/L (3.5-5.1); SODIUM SERUM 142 mmol/L (136-145); TOTAL PROTEIN, SERUM 5.7 g/dL (6.4-8.2); UREA NITROGEN, BLOOD 73 mg/dL (7-18)
--- NOTE | 2018-10-02 07:30 | NUR ---
CELESTINO RN OPENING NOTES RECEIVED PATIENT IN BED, OBTUNDED. NOT ON ANY FORM OF DISTRESS. VENT AND TRACH DEPENDENT, TRACH IN PLACE AT MIDLINE POSITION. MECH. VENT ON SETTINGS ORDERED, PATIENT TOLERATING WELL, NO SOB NOTED. NO INDICATION OF PAIN NOTED. PATIENT SINUS RHYTHM ON THE MONITOR HR AT 73. PICC LINE NOTED ON THE RIGHT UPPER ARM, IN PLACE, DRESSING CDI. HD CATH ON THE LEFT CHEST WALL. IN PLACE, DRESSING C/D/I. WITH DRESSING ON THE RIGHT INGUINAL AREA, S/P FEMORAL CATH REMOVAL. DRESSING C/DI. WITH ONGOING GT FEEDING OF NEPRO RUNNING 45ML/HR. GT PLACEMENT CONFIRMED BY AUSCULTATION AND ASPIRATING GASTRIC RESIDUAL, MINIMAL RESIDUAL NOTED. ORTIZ CATHETER IN PLACE AND DRAINING VIA GRAVITY TO YELLOW URINE. HOB ELEVATED AT AT 45, SAFETY MEASURES IN PLACE, BED LOCKED AND IN LOW POSITION, SIDE RAILS UPX2, CALL LIGHT WITHIN REACH. WILL CONT TO MONITOR AND ANTICIPATE PATIENT'S NEEDS.
[2018-10-02 07:46] LABS: ABG OXYGEN SATURATION 97.6 % (92.0-98.5); ABG PCO2 37.7 mmHg (35.0-45.0); ABG PH 7.456 (7.350-7.450); ABG PO2 124.8 mmHg (75.0-100.0); AaDO2 44.8 mmHg; COHb 0.7 % (0.5-1.5); MetHb 0.1 % (0.0-1.5); O2Hb 96.8 % (94.0-97.0); PEEP,BG 5 cm H2O; SITE, ABG Left Radial; VENT MODE, BG CPAP PS15
[2018-10-02 08:00] VITALS: BP 128/56
[2018-10-02] MEDS: PANTOPRAZOLE 40 MG/PACK PACK GT SCH (09:19)
[2018-10-02] MEDS: PROSOURCE / PROSTAT (PYXIS) 30 ML UDC GT SCH ×2 (09:19→16:58)
[2018-10-02] MEDS: LACTOBACILLUS RHAMNOSUS GG 1 EACH CAP.SPRINK PO SCH ×2 (09:20→16:58)
[2018-10-02] MEDS: AMIODARONE HCL 200 MG TABLET PO SCH (09:20)
[2018-10-02] MEDS: SERTRALINE HCL 50 MG TABLET PO SCH (09:20)
[2018-10-02] MEDS: CHLORHEXIDINE GLUCONATE 15 ML UDC MM SCH ×2 (09:20→16:58)
[2018-10-02] MEDS: MEMANTINE HCL 5 MG TABLET PO SCH ×2 (09:21→16:58)
[2018-10-02] MEDS: MULTIVIT W/MINERALS 1 TAB TABLET PO SCH (09:21)
[2018-10-02 12:00] VITALS: BP 122/57
[2018-10-02 16:00] VITALS: BP 111/62
--- NOTE | 2018-10-02 19:21 | NUR ---
RN NOTES ENDORSED FOR CONTINUITY OF CARE. NOT ON ANY FORM OF DISTRESS. NO ACUTE CHANGES WITHIN THE SHIFT. ALL NURSING NEEDS ATTENDED AND MET. SAFETY MEASURES IN PLACE. CALL LIGHT WITHIN REACH.
--- NOTE | 2018-10-02 19:30 | NUR ---
ROUTE SERVICE MANAGER OPENING NOTES RECEIVED PATIENT IN BED, OBTUNDED. ON MECHANICAL VENT TRACH SETTINGS ORDERED, TOLERATING WELL, NO SOB AND NO RESPIRATORY DISTRESS NOTED. NO SIGNS OF PAIN NOTED. LEFT SUBCLAVIAN HD CATH. IV SITE REMY PICC, FLUSHING AND PATENT, SITE C/D/I, S/L. GT FEEDING NEPRO AT 35ML/HR, SITE C/D/I. FC IN PLACE AND OFF THE GROUND, YELLOW URINE NOTED. SAFETY MEASURES IN PLACE; BED LOCKED AND IN LOW POSITION, SIDE RAILS UPX2, HOB ELEVATED AT ALL TIMES, CALL LIGHT WITHIN REACH. WILL CONT TO MONITOR PT CLOSELY.
[2018-10-02 20:00] VITALS: BP 117/47
[2018-10-02] MEDS ORDERED: CEFEPIME 1 GM in IV D5W 50 ML IV SCH (22:00)
[2018-10-02] MEDS ORDERED: CEFEPIME 1 GM VIAL ONE (22:41)
[2018-10-03] VITALS (11 sets, daily range): BP systolic 100–136; BP diastolic 51–66
[2018-10-03] MEDS: INSULIN REGULAR, HUMAN 100 UNIT/ML 3 ML VIAL SQ PRN ×4 (00:15→18:45)
[2018-10-03] MEDS: BLOOD SUGAR DIAGNOSTIC 1 EACH STRIP IN SCH ×4 (00:59→18:43)
--- NOTE | 2018-10-03 03:34 | NUR ---
RT Pt trach remains on [facility] vent t/o the night. trach secure and patent. Addendum: 10/03/18 at 0334 by OBDULIA SUGGS RT Amended: Links added.
[2018-10-03] MEDS: NEPRO 1,000 ML BOTTLE GT PRN (05:00)
[2018-10-03 06:38] LABS: CALCIUM, SERUM 8.3 mg/dL (8.5-10.1); CARBON DIOXIDE 26 mmol/L (21-32); CHLORIDE 107 mmol/L (98-107); CREATININE 3.6 mg/dL (0.6-1.3); GLUCOSE 156 mg/dL (74-106); POTASSIUM 3.9 mmol/L (3.5-5.1); SODIUM SERUM 144 mmol/L (136-145)
[2018-10-03 06:39] LABS: UREA NITROGEN, BLOOD 102 mg/dL (7-18)
[2018-10-03 06:40] LABS: BASOPHILS # (AUTO) 0.2 /CMM (0.0-0.2); BASOPHILS % (AUTO) 2.4 % (0.0-2.0); EOSINOPHILS % (AUTO) 3.9 % (0.0-6.0); HEMATOCRIT 21 % (39-51); LYMPHOCYTES # (AUTO) 1.3 /CMM (0.8-4.8); MEAN CORPUSCULAR HGB CONC 33 g/dl (31.0-36.0); MEAN CORPUSCULAR VOLUME 94 fL (80-96); MONOCYTES # (AUTO) 0.6 /CMM (0.1-1.30); MONOCYTES % (AUTO) 8.2 % (2.0-12.0); NEUTROPHILS # (AUTO) 5.4 /CMM (1.8-8.9); NEUTROPHILS % (AUTO) 68.5 % (43.0-81.0); PLATELET COUNT (AUTO) 558 /CMM (150-450); RED BLOOD CELL COUNT(AUTO) 2.27 MIL/uL (4.5-6.0); WHITE BLOOD COUNT (AUTO) 7.9 K/uL (4.3-11.0)
--- NOTE | 2018-10-03 07:04 | NUR ---
RAG CUTTING MACHINE TENDER CLOSING NOTES PATIENT IN BED, OBTUNDED. NO ACUTE CHANGES THROUGHOUT SHIFT. ON MECHANICAL VENT TRACH SETTINGS ORDERED, TOLERATING WELL. NO SIGNS OF PAIN NOTED. LEFT SUBCLAVIAN HD CATH AND RIGHT FEMORAL CATH NOTED AND IN PLACE, SITES C/D/I. IV SITE REMY PICC, FLUSHING AND PATENT, SITE C/D/I, S/L. GT FEEDING NEPRO AT 45ML/HR, SITE C/D/I, MINIMAL RESIDUAL NOTED. FC IN PLACE AND OFF THE GROUND, YELLOW URINE NOTED. SAFETY MEASURES MAINTAINED; BED LOCKED AND IN LOW POSITION, SIDE RAILS UPX2, HOB ELEVATED AT ALL TIMES, CALL LIGHT WITHIN REACH. ENDORSED TO AM RN FOR ERICK.
--- NOTE | 2018-10-03 07:30 | NUR ---
BOARDING SPECIALIST OPENING NOTES RECEIVED PATIENT IN BED, OBTUNDED. HE IS ON MECHANICAL VENT WITH URVASHI 8 TRACH AND SETTINGS ORDERED. HE IS TOLERATING WELL, NO SIGNS OF RESPIRATORY DISTRESS OR SOB NOTED. TELE MONITOR SHOWING SR. ROTIZ CATHETER IS PATENT. HE HAS A PICC LINE ON RIGHT UPPER ARM. HE IS RECEIVING NEPRO VIA GTUBE AT 45 ML/HR, TOLERATING WELL. SAFETY MEASURES IN PLACE, BED IN LOWEST AND LOCKED POSITION, CALL LIGHT WITHIN REACH, WILL CONTINUE TO MONITOR.
[2018-10-03] MEDS: PROSOURCE / PROSTAT (PYXIS) 30 ML UDC GT SCH ×2 (09:08→17:56)
[2018-10-03] MEDS: MULTIVIT W/MINERALS 1 TAB TABLET PO SCH (09:09)
[2018-10-03] MEDS: PANTOPRAZOLE 40 MG/PACK PACK GT SCH (09:09)
[2018-10-03] MEDS: MEMANTINE HCL 5 MG TABLET PO SCH ×2 (09:09→17:55)
[2018-10-03] MEDS: SERTRALINE HCL 50 MG TABLET PO SCH (09:09)
[2018-10-03] MEDS: CHLORHEXIDINE GLUCONATE 15 ML UDC MM SCH ×2 (09:13→17:55)
[2018-10-03] MEDS: AMIODARONE HCL 200 MG TABLET PO SCH (09:13)
[2018-10-03] MEDS: LACTOBACILLUS RHAMNOSUS GG 1 EACH CAP.SPRINK PO SCH ×2 (09:13→17:55)
--- NOTE | 2018-10-03 09:30 | NUR ---
RN NOTES DUE MEDS GIVEN
--- NOTE | 2018-10-03 12:35 | NUR ---
RN NOTES HD NURSE ISRRAEL AT BEDSIDE.
--- NOTE | 2018-10-03 15:14 | NUR ---
OYSTER GROWER NOTES 1 UNIT PRBC STARTED WITH HD.
--- NOTE | 2018-10-03 15:45 | NUR ---
LEATHER CRAFTER NOTES HD COMPLETED. 1.2 LITERS OUT 1 UNIT PRBC GIVEN. NO REACTIONS NOTED. VSS
--- NOTE | 2018-10-03 19:09 | NUR ---
PT RECEIVED TRACHED ON [facility] VENT ON CHARTED SETTINGS. NO SIGNS OF DISTRESS NOTED. ALARMS SET AND AUDIBLE. AMBUBAG AND SPARE TRACH AT BEDSIDE. WILL CONT TO MONITOR. Addendum: 10/03/18 at 2045 by LUISITO JONES RT Amended: Links added.
--- NOTE | 2018-10-03 19:53 | NUR ---
RN CLOSING NOTES PATIENT IS RESTING COMFORTABLY IN BED. HE IS TOLERATING HIS MECH VENT SETTINGS WELL, TOLERATING GTUBE FEEDING WELL AT 45 ML/HR, NO RESIDUAL. HE HAD A COMPLETE LINEN CHANGE TODAY. SAFETY MEASURES HAVE BEEN IMPLEMENTED, CALL LIGHT WITHIN REACH, SIDE RAILS UP X2, BED IN LOWEST AND LOCKED POSITION. ENDORSE TO PM NURSE FOR CONTINUOUS CARE.
--- NOTE | 2018-10-03 20:30 | NUR ---
RN NOTES, PATIENT ENDORSED IN STABLE CONDITION TO JACOB WHALEN FOR CONTINUATION OF CARE.
[2018-10-04] VITALS: BP 108/52
[2018-10-04] MEDS: BLOOD SUGAR DIAGNOSTIC 1 EACH STRIP IN SCH ×4 (00:56→17:13)
[2018-10-04] MEDS: INSULIN REGULAR, HUMAN 100 UNIT/ML 3 ML VIAL SQ PRN ×3 (00:59→18:21)
[2018-10-04 04:00] VITALS: BP 116/57
[2018-10-04 07:33] LABS: CALCIUM, SERUM 8.2 mg/dL (8.5-10.1); CARBON DIOXIDE 29 mmol/L (21-32); CHLORIDE 105 mmol/L (98-107); CREATININE 2.4 mg/dL (0.6-1.3); GLUCOSE 188 mg/dL (74-106); MAGNESIUM 2.5 mg/dL (1.8-2.4); PHOSPHORUS 4.2 mg/dL (2.5-4.9); POTASSIUM 3.9 mmol/L (3.5-5.1); SODIUM SERUM 143 mmol/L (136-145); UREA NITROGEN, BLOOD 67 mg/dL (7-18)
[2018-10-04 07:44] LABS: BASOPHILS # (AUTO) 0.1 /CMM (0.0-0.2); BASOPHILS % (AUTO) 1.7 % (0.0-2.0); EOSINOPHILS % (AUTO) 4.2 % (0.0-6.0); HEMATOCRIT 25 % (39-51); HEMOGLOBIN 8.3 g/dL (13.5-17.5); LYMPHOCYTES # (AUTO) 1.4 /CMM (0.8-4.8); LYMPHOCYTES % (AUTO) 18.1 % (20.0-44.0); MEAN CORPUSCULAR HGB CONC 33 g/dl (31.0-36.0); MEAN CORPUSCULAR VOLUME 91 fL (80-96); MONOCYTES # (AUTO) 0.6 /CMM (0.1-1.30); MONOCYTES % (AUTO) 8.1 % (2.0-12.0); NEUTROPHILS # (AUTO) 5.3 /CMM (1.8-8.9); NEUTROPHILS % (AUTO) 67.9 % (43.0-81.0); PLATELET COUNT (AUTO) 695 /CMM (150-450); RED BLOOD CELL COUNT(AUTO) 2.73 MIL/uL (4.5-6.0); WHITE BLOOD COUNT (AUTO) 7.7 K/uL (4.3-11.0)
[2018-10-04 08:00] VITALS: BP 117/61
--- NOTE | 2018-10-04 08:00 | NUR ---
LACTATION NURSE NOTES PATIENT IN BED SLEEPING. PT TOLERATING MECH VENT SETTINGS WELL. TOLERATING GTUBE FEEDING WELL AT 45 ML/HR, WITH NO RESIDUAL. SAFETY MEASURES IN PLACE WITH BED IN LOWEST LOCKED POSITION WITH SIDE RAILS UP X2. CALL LIGHT WITHIN REACH. PT TURNED Q2 HRS. PT KEPT CLEAN, DRY, AND COMFORTABLE. WILL ENDORSE TO ONCOMING NURSE FOR ERICK.
[2018-10-04] MEDS: LACTOBACILLUS RHAMNOSUS GG 1 EACH CAP.SPRINK PO SCH ×2 (09:37→17:13)
[2018-10-04] MEDS: PROSOURCE / PROSTAT (PYXIS) 30 ML UDC GT SCH ×2 (09:37→17:14)
[2018-10-04] MEDS: SERTRALINE HCL 50 MG TABLET PO SCH (09:37)
[2018-10-04] MEDS: MEMANTINE HCL 5 MG TABLET PO SCH ×2 (09:39→17:14)
[2018-10-04] MEDS: AMIODARONE HCL 200 MG TABLET PO SCH (09:39)
[2018-10-04] MEDS: MULTIVIT W/MINERALS 1 TAB TABLET PO SCH (09:40)
[2018-10-04] MEDS: CHLORHEXIDINE GLUCONATE 15 ML UDC MM SCH ×2 (09:40→17:14)
[2018-10-04] MEDS: PANTOPRAZOLE 40 MG/PACK PACK GT SCH (09:40)
[2018-10-04 11:50] LABS: ABG BASE EXCESS 3.2 mmol/L; ABG OXYGEN SATURATION 93.6 % (92.0-98.5); ABG PCO2 40.8 mmHg (35.0-45.0); ABG PH 7.446 (7.350-7.450); ABG PO2 72.5 mmHg (75.0-100.0); COHb 1.2 % (0.5-1.5); MetHb 0.1 % (0.0-1.5); O2Hb 92.4 % (94.0-97.0); SITE, ABG Right Radial; VENT MODE, BG 28% 5L
[2018-10-04 12:00] VITALS: BP 122/59
--- NOTE | 2018-10-04 12:30 | NUR ---
RN NOTE PT PLACED ON COOL AEROSOL BY RT AT 0935, THEN LATER CHECKED ABG, AT [address] CARDENAS, NO CHANGES TO 5L/MIN, AND 28%. PT TOLERATES WELL, NO CHANGES AT THIS TIME. WILL MONITOR.
[2018-10-04] MEDS ORDERED: Nepro GT (14:53)
[2018-10-04] MEDS ORDERED: PANT40SU2 GT (14:53)
[2018-10-04] MEDS ORDERED: Prosource GT (14:53)
[2018-10-04] MEDS ORDERED: CHLO473M2 MM (14:53)
[2018-10-04 16:00] VITALS: BP 116/56
--- NOTE | 2018-10-04 19:30 | NUR ---
RN NOTE PT DISCHARGED TO [facility], REPORT GIVEN TO JACOB PATRICIO, IN STABLE CONDITION VIA AMBULANCE, EXIT CARE DONE, PT UNABLE TO COMPREHEND TEACHINGS, DAUGHTER VISITED AND MADE AWARE ABOUT DISCHARGE. DISCHARGE INSTRUCTIONS PROVIDED TO AMBULANCE, PT HAD NO BELONGINGS, ORTIZ AND REMY PICC LINE LEFT IN PLACE. G TUBE CLAMPED. MED RECON INCLUDED. PICTURES TAKEN AND PLACED IN CHART. ID BAND REMOVED.
== END 2018-10-04 19:37 | DRG 4 ==
LOC: ER 05:40 → ICU 08:16 → TELE-TD 10-01 16:41 → MEDSG1 10-02 10:23 → TELE1 10-02 19:40
PROVIDERS: ATTEND Hospitalist
PROC: 5A09357 Assistance with Respiratory Ventilation, Less than 24 Consecutive Hours, Continuous Positive Airway Pressure (ICD-10-PCS; principal; 2018-09-18)
PROC: 05HY33Z Insertion of Infusion Device into Upper Vein, Percutaneous Approach (ICD-10-PCS; 2018-09-18)
PROC: 5A1D70Z Performance of Urinary Filtration, Intermittent, Less than 6 Hours Per Day (ICD-10-PCS; 2018-09-18)
PROC: 0JHL3XZ Insertion of Tunneled Vascular Access Device into Right Upper Leg Subcutaneous Tissue and Fascia, Percutaneous Approach (ICD-10-PCS; 2018-09-18)
PROC: 5A1955Z Respiratory Ventilation, Greater than 96 Consecutive Hours (ICD-10-PCS; 2018-09-19)
PROC: 0BH17EZ Insertion of Endotracheal Airway into Trachea, Via Natural or Artificial Opening (ICD-10-PCS; 2018-09-19)
PROC: 5A1D70Z Performance of Urinary Filtration, Intermittent, Less than 6 Hours Per Day (ICD-10-PCS; 2018-09-19)
PROC: 5A1D70Z Performance of Urinary Filtration, Intermittent, Less than 6 Hours Per Day (ICD-10-PCS; 2018-09-23)
PROC: 5A1D70Z Performance of Urinary Filtration, Intermittent, Less than 6 Hours Per Day (ICD-10-PCS; 2018-09-25)
PROC: 5A1D70Z Performance of Urinary Filtration, Intermittent, Less than 6 Hours Per Day (ICD-10-PCS; 2018-09-27)
PROC: 5A1D70Z Performance of Urinary Filtration, Intermittent, Less than 6 Hours Per Day (ICD-10-PCS; 2018-09-29)
PROC: 0B110F4 Bypass Trachea to Cutaneous with Tracheostomy Device, Open Approach (ICD-10-PCS; 2018-09-30)
PROC: 0DH63UZ Insertion of Feeding Device into Stomach, Percutaneous Approach (ICD-10-PCS; 2018-09-30)
PROC: 02H633Z Insertion of Infusion Device into Right Atrium, Percutaneous Approach (ICD-10-PCS; 2018-09-30)
PROC: B214YZZ Fluoroscopy of Right Heart using Other Contrast (ICD-10-PCS; 2018-09-30)
PROC: 5A1D70Z Performance of Urinary Filtration, Intermittent, Less than 6 Hours Per Day (ICD-10-PCS; 2018-10-01)
PROC: 30233P1 Transfusion of Nonautologous Frozen Red Cells into Peripheral Vein, Percutaneous Approach (ICD-10-PCS; 2018-10-03)
PROC: 5A1D70Z Performance of Urinary Filtration, Intermittent, Less than 6 Hours Per Day (ICD-10-PCS; 2018-10-03)
DX: A41.9 Sepsis, unspecified organism (principal); R65.21 Severe sepsis with septic shock; J96.01 Acute respiratory failure with hypoxia; N17.0 Acute kidney failure with tubular necrosis; G93.41 Metabolic encephalopathy; E43 Unspecified severe protein-calorie malnutrition; J69.0 Pneumonitis due to inhalation of food and vomit; E87.2 Acidosis; N39.0 Urinary tract infection, site not specified; I13.0 Hypertensive heart and chronic kidney disease with heart failure and stage 1 through stage 4 chronic kidney disease, or unspecified chronic kidney disease; E87.0 Hyperosmolality and hypernatremia; I25.10 Atherosclerotic heart disease of native coronary artery without angina pectoris; E11.22 Type 2 diabetes mellitus with diabetic chronic kidney disease; I25.2 Old myocardial infarction; I48.91 Unspecified atrial fibrillation; G30.9 Alzheimer's disease, unspecified; F02.80 Dementia in other diseases classified elsewhere, unspecified severity, without behavioral disturbance, psychotic disturbance, mood disturbance, and anxiety; E87.5 Hyperkalemia; E87.70 Fluid overload, unspecified; R00.1 Bradycardia, unspecified; E11.649 Type 2 diabetes mellitus with hypoglycemia without coma; D63.8 Anemia in other chronic diseases classified elsewhere; K21.9 Gastro-esophageal reflux disease without esophagitis; F32.9 Major depressive disorder, single episode, unspecified; N18.9 Chronic kidney disease, unspecified; I50.9 Heart failure, unspecified; R53.1 Weakness; D72.829 Elevated white blood cell count, unspecified; D69.6 Thrombocytopenia, unspecified; E11.51 Type 2 diabetes mellitus with diabetic peripheral angiopathy without gangrene; Z68.23 Body mass index [BMI] 23.0-23.9, adult; E61.1 Iron deficiency; R13.10 Dysphagia, unspecified
CPT/HCPCS: 31720; 36415; 36569; 36600; 43246; 70450-TC; 71045-TC; 76770-TC; 80048-TC; 80053-TC; 80061-TC; 80076-TC; 80202-TC; 81000-TC; 82040-TC; 82140-TC; 82533; 82570-TC; 82728-TC; 82803-TC; 82962-TC; 83540-TC; 83605-TC; 83735-TC; 83880; 84100-TC; 84132-TC; 84300-TC; 84439-TC; 84443-TC; 84484-TC; 85025-TC; 85730-TC; 86704; 86705; 86706; 86803; 86850-TC; 86921-TC; 87040-TC; 87070-TC; 87081-TC; 87086-TC; 87340; 90935-TC; 93307-TC; 94002-TC; 94003-TC; 94664-TC; 94760-TC; 94762-TC; A4216; A4217; A4623; A6253; A6403; A7526; C1750; C1751; G0378; J0690; J0692; J1265; J1644; J1720; J1815; J1956; J2185; J2250; J2405; J2543; J2704; J2765; J2916; J3010; J3370; J3475; J3490; J7030; J7040; J7050; J7060; P9016-BL; P9047